=== PATIENT | male | born 1935 | race Caucasian/White ===

== ENCOUNTER 2016-09-02 06:14 | Inpatient (IN) | payer MEDICARE, BC ==
[~2016-09-02] VITALS: Ht 177.8 cm; Wt 83.8 kg
--- NOTE | ~2016-09-02 | CON ---
PATIENT'S NAME: ABIGAIL STEEN [facility] AGE: 80 Y [address] ROOM: [address] [place], [place] [address] [place] [facility] [place]: 09/02/2016 Consultation DISCHARGE DATE: FAMILY PHYSICIAN: ELLE BULL MD ATTENDING PHYSICIAN: Poncho Bales REFERRING PHYSICIAN: ALLEGRA GARZA MD CHIEF COMPLAINT: The patient needs blood sugar and cardiac monitoring after surgery. HISTORY OF PRESENT ILLNESS: Mr. 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 This left-handed patient did well in surgery and had been cleared from cardiac standpoint. When I talked to him on the floor, he is not complaining of any pain in his arm. He is denying shortness of breath or chest pain. No headaches. No fevers, chills, or cough. He has no other complaints. REVIEW OF SYSTEMS: Negative except for those noted in the HPI. ALLERGIES: 1. CONTRAST ALLERGY. 2. PROCAINAMIDE. PAST MEDICAL HISTORY: 1. Paroxysmal atrial fibrillation, rate controlled as well as anticoagulated. 2. Calcaneal spur. 3. Diabetes mellitus type 2, with good control. Last hemoglobin A1c was within normal limits. 4. Congestive heart failure. 5. Emphysema. 6. History of bladder cancer. 7. History of prostate cancer. 8. Hypercholesterolemia. 9. Labyrinthitis. 10. Plantar fasciitis. 11. Obesity. 12. Obstructive sleep apnea. PAST SURGICAL HISTORY: 1. Tumor removal of left squamous cell metastasis. 2. CABG. PATIENT'S NAME: ABIGAIL STEEN [facility] AGE: 80 Y [address] ROOM: [address] [place], [place] [address] [place] [facility] [place]: 09/02/2016 Consultation DISCHARGE DATE: FAMILY PHYSICIAN: ELLE BULL MD ATTENDING PHYSICIAN: Poncho Bales 3. Cystoscopy. 4. Hernia repair. 5. Knee surgery. 6. Prostatectomy. 7. Tonsillectomy. 8. [place] teeth repair. MEDICATION LIST: Please see nursing notes. FAMILY HISTORY: 1. Brain neoplasm in sister. 2. Lung disease in sister. SOCIAL HISTORY: The patient previously drank alcohol socially, but is no longer. He does drink coffee occasionally. He served in the [employer]. 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 He uses a seatbelt every day. He does have a long-term relationship. PHYSICAL EXAMINATION: GENERAL: Pleasant, interactive elderly male in no acute distress. HEAD: Normocephalic, atraumatic. Eyes, conjunctivae clear. Sclerae white. ENT, mucous membranes moist. HEART: Regular rate and rhythm without murmurs, rubs, clicks, or gallops. LUNGS: Clear to auscultation in all izquierdo bilaterally. ABDOMEN: Soft, nontender, nondistended. Bowel sounds are positive. EXTREMITIES: Warm and well perfused. No clubbing, cyanosis, or edema. MUSCULOSKELETAL: The patient's left upper extremity is wrapped with a Hugo- Arredondo drain as well as a sling in place. IMPRESSION/PLAN: 1. Postoperative day #1 status post tumor resection of the left elbow area. The patient is doing well, currently postop. He has Percocet ordered. May also need IV pain medication as well. We will continue to manage. 2. Paroxysmal atrial fibrillation. The patient currently is in sinus rhythm. We will just continue with his current medication regimen. 3. Chronic anticoagulation. Xarelto will resume as long as it is okay with patient's primary surgical team. 4. Hypothyroidism. We will draw TSH in the morning. 5. Diabetes mellitus type 2. Sliding scale insulin while in the hospital. We will continue with just sliding scale and hold his the glipizide while in hospital. 6. Congestive heart failure. The patient appears to be normal or euvolemic at this time. We will just continue to watch. PATIENT'S NAME: ABIGAIL STEEN [facility] AGE: 80 Y [address] ROOM: [address] [address] [place] [facility] [place]: 09/02/2016 Consultation DISCHARGE DATE: FAMILY PHYSICIAN: ELLE BULL MD ATTENDING PHYSICIAN: Poncho Bales 7. Chronic obstructive pulmonary disease. May need oxygen at nighttime. 8. Obstructive sleep apnea with CPAP continued in the hospital. 9. Hyperlipidemia. Continue with the patient's statin medication. 10. Ischemic cardiomyopathy. Patient's last echo was 2014 and appeared to be normal. He had normal Lexiscan test. We wanted to see how he does overall. 11. History of history of gastrointestinal bleed. We will monitor. 12. Fluids: None. 13. Electrolytes: Stable. Continue to monitor as needed. 14. Nutrition: Cardiac diet. 15. Disposition: Ultimately per surgical team. Thank you to the primary surgical team for the consultation of this very pleasant patient. I will continue to follow along while in hospital. MD ARLENE GOODEN/modl /[id number] d: 09/03/16 0127 t: 09/07/16 1516, CONSULTATION REPORT
--- NOTE | ~2016-09-02 | CON ---
PATIENT'S NAME: GUANAKO STEEN [facility] AGE: 80 Y [address] ROOM: [address] [address] LOC[place]: [facility] [place] ADMIT DATE: 09/03/2016 Consultation DISCHARGE DATE: FAMILY PHYSICIAN: ELLE BULL MD ATTENDING PHYSICIAN: Poncho Bales REFERRING PHYSICIAN: ALLEGRA GARZA MD Consult to Poncho Bales DO. 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 The history of the present illness is obtained from Mr. Steen who is a voluble and circumlocutory historian; from review of the [facility] record; and review of the [facility] record. Mr. Steen underwent an excision of a left recurrent malignant squamous cell carcinoma as well as a left ulnar neuroplasty at the elbow and left median neuroplasty of the forearm and left brachial artery exposure yesterday. The patient is seen in the hospital. The pathologists have not rendered a final diagnosis on the histology. The patient tolerated the procedure well and is feeling well today. Prior to admission, the patient lived in [place] with his . He developed dyspnea on exertion if he walked [address] and do easy lawn work or housework. The patient was experiencing some discomfort in the medial upper left arm just above the elbow. The patient underwent MRI of the left humerus on 07/30/2016, which revealed a 2.3 cm rim-enhancing mass in the distal medial aspect of the left upper arm within the anterior margin of the long head triceps muscle adjacent to the medial margin brachialis muscle, just anterior to the basilic vein and the ulnar nerve. There was surrounding intramuscular enhancement as well as overlying subcutaneous edema and skin thickening. The patient saw his oncologist, Dr. Ileana [place], who booked a PET/CT scan, which was performed on 08/06/2016. This revealed a mass in the distal medial left upper arm in the area of previous surgery with an SUV of 4.4. The mass had not been present on the most recent PET/CT scan performed on 02/17/2016. There were also tiny gallstones. Dr. [place] referred the patient to Dr. Bales, who performed the aforementioned procedure. The patient has a history of cutaneous squamous cell carcinoma. In February 2014, the patient saw Dr. Bulmaro Shoemaker for a squamous cell carcinoma present on the left 3rd digit. The lesion was excised. The path report is currently PATIENT'S NAME: GUANAKO STEEN [facility] AGE: 80 Y [address] ROOM: [address] [place], [place] [address] LOCATION: [facility] [place] ADMIT DATE: 09/03/2016 Consultation DISCHARGE DATE: FAMILY PHYSICIAN: ELLE BULL MD ATTENDING PHYSICIAN: Poncho Bales. The initial pathology report, obtained after the 1st surgical biopsy revealed squamous cell carcinoma with tumor involving the lateral linked resection margins, but the pathology report after the re-excision is not available. In March 2015, the patient detected a mass in the upper left arm. Surveillance was implemented and 2 months later the mass had grown and the patient was experiencing pain and developed a left 4th trigger finger. An MRI on 05/19/2015 revealed the mass had enlarged from 4 to 7 cm in 2 months. On 05/17/2015, Dr. Ileana Berrios, an orthopedic oncologist in [place], [place] performed a needle biopsy of the mass. This revealed the presence of squamous cell carcinoma. A PET/CT scan was performed and revealed uptake in the left axilla as well as the left arm mass. On 06/13/2015, a fine-needle aspirate revealed squamous cell carcinoma in the left axillary mass. On 06/14/2015, cetuximab was initiated. On 06/25/2015, infusional 5-FU, carboplatin, and cetuximab were administered together and a 2nd cycle was started on 08/29/2015. From 08/22/2015 through 11/07/2015 weekly cetuximab was administered. From 09/23/2015 through 11/15/2015, 5940 cGy was administered in(presumably thirty three 180 cGy fractions) to the "tumor involved area." On 02/18/2016, the PET scan revealed the patient was in a complete remission. ACTIVE MEDICAL PROBLEMS (CHRONIC AND DIAGNOSED): 1. ? dementia listed as a diagnosis. 2. Hypothyroidism. 3. Diabetes mellitus. 4. Hypercholesterolemia. 5. 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 6. Chronic paroxysmal atrial fibrillation. 7. Essential arterial hypertension. 8. Hyperlipidemia. 9. Ischemic cardiomyopathy. 10. Chronic obstructive lung disease. 11. Obstructive sleep apnea with CPAP. 12. Diaphragmatic hernia with associated gastroesophageal reflux disease. 13. Hyperplastic polyps of the colon. 14. Cholelithiasis noted on CAT scan. 15. Tobacco use. The patient has abstained since 1996, but smoked 1 pack PATIENT'S NAME: GUANAKO STEEN [facility] AGE: 80 Y [address] ROOM: [place] [address] LOCATION: [facility] [place] ADMIT DATE: 09/03/2016 Consultation DISCHARGE DATE: FAMILY PHYSICIAN: ELLE BULL MD ATTENDING PHYSICIAN: Poncho Bales per day for 47 years. ACUTE MEDICAL ILLNESS, (RESOLVED), PAST SURGERIES, AND INJURIES: 1. In 1994, left carpal tunnel repair. 2. In 1998, coronary artery bypass graft two-vessel disease. 3. In 2008-triple herniorrhaphy. 4. In 2009, prostatectomy for pC2c adenocarcinoma. 5. In 2011-transurethral resection of bladder tumor with subsequent BCG treatments for papillary urothelial bladder cancer in situ. 6. In 2013, pneumonia complicated by atrial fibrillation with rapid ventricular response. 7. Cataract excisions. MEDICATIONS: Upon admission: 1. Acetaminophen/diphenhydramine 2 tablets p.o. q.p.m. 2. Albuterol sulfate inhaler. 3. Apixaban. 4. Atorvastatin. 5. Fluocinonide. 6. Furosemide. 7. Glipizide. 8. Levothyroxine sodium. 9. Lisinopril. 10. Omeprazole. 11. Sotalol. 12. Tiotropium bromide inhaler. ADVERSE REACTIONS TO MEDICATIONS, ALLERGIES, AND TRANSFUSIONS: 1. The patient has no known allergies. 2. The patient did receive 6 units of packed red blood cells during an admission in August of 2015 when he was hospitalized for a chemotherapy related anemia. 3. Tobacco one pack per day for 42 years. The patient has abstained from tobacco since 1996. 4. Alcohol: The patient does not drink alcohol any more. SOCIAL HISTORY: The patient is and lives in [place]. He served in the [employer]. 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 REVIEW OF SYMPTOMS: Negative other than those noted. The patient does acknowledge that he had a tonsillectomy. PATIENT'S NAME: GUANAKO STEEN [facility] AGE: 80 Y [address] ROOM: [place] [address] LOC[place]: [facility] [place] ADMIT DATE: 09/03/2016 Consultation DISCHARGE DATE: FAMILY PHYSICIAN: ELLE BULL MD ATTENDING PHYSICIAN: Poncho Bales PHYSICAL EXAMINATION: VITAL SIGNS: Pulse 52 and regular, blood pressure 125/60, respiratory rate 24, temperature 98 degrees, SpO2 91% on room air. Height 70 inches, weight 83.8 kg/m2 (185 pounds). BMI 26.5 kg/m2. GENERAL: Well-developed, slightly overweight, 80-year-old, male, in no acute distress. HEENT: Unremarkable. LYMPH NODES: None palpable. NECK: Without JVD or carotid bruits. SKIN: Unremarkable. CHEST: Clear. CARDIOVASCULAR: Irregularly irregular rhythm. No murmurs, bruits or adventitious sounds. GENITALIA AND RECTAL: Not examined. EXTREMITIES: Without peripheral edema. Pulses 2+ throughout. IMPRESSION: 1. Recurrent cutaneous squamous cell carcinoma in the medial upper left arm involving the brachial artery and close to the ulnar and median nerves. 2. The patient tolerated the surgery well. 3. It is clear that surgery was warranted. If the area was not previously irradiated (and possibly even if it has been irradiated before) radiation therapy should probably be contemplated. 4. Empiric chemotherapy is a consideration based on its proven activity in measurable metastatic disease. Given the patient's past treatment, his past adverse reactions and the absence of clinical trial data in this unusual situation, there is little data to guide the patient. RECOMMEND: DIAGNOSTIC: 1. The patient will return to his oncologist Dr. [place] in 3-4 weeks to evaluate his situation. TREATMENT: 1. Discussion of the pros and cons of postoperative systemic chemotherapy and the pros and cons of referral of Radiation Oncology will presumably be conducted at that time. PATIENT EDUCATION: Discussed the above considerations. EDWIN DUFFY MD PATIENT'S NAME: GUANAKO STEEN [facility] AGE: 80 Y [address] ROOM: [place] [address] LOC[place]: [facility] [place] ADMIT DATE: 09/03/2016 Consultation DISCHARGE DATE: FAMILY PHYSICIAN: ELLE BULL MD ATTENDING PHYSICIAN: Poncho Bales GKB/modl /[id number] CC: Alex Munoz MD, PhD MD Bulmaro Desir MD d: 09/04/16 1716 t: 09/07/16 1836, CONSULTATION REPORT
--- NOTE | ~2016-09-02 | DS ---
PATIENT'S NAME: GUANAKO STEEN [facility] AGE: 80 Y [address] ROOM: [place] [address] [place] [facility] [place]MIT DATE: 09/03/2016 Discharge Summary DISCHARGE DATE: 09/06/2016 FAMILY PHYSICIAN: Michi Mak MD ATTENDING PHYSICIAN: Poncho Bales CORRECTED WORK TYPE 09/16/16 AO PRINCIPAL DIAGNOSIS: Recurrent squamous cell carcinoma of the left upper arm. OTHER DIAGNOSES: None. PROCEDURES PERFORMED: Left arm malignant tumor excision, ulnar neuroplasty at the elbow, and median neuroplasty of the forearm and arm. SURGEON: Poncho Bales DO. ADMISSION INFORMATION: Guanako Steen is an 80-year-old man with a history of recurrent malignant metastatic squamous cell carcinoma with a mass in his medial aspect of his upper arm on the left side. He was previously treated with this surgically and underwent subsequent radiation and chemotherapy. He initially did well, and then had a recurrence in the area of his first met. He was counseled as to treatment options. Risks versus benefits, and necessary afterward care and gave informed consent to proceed with a mass excision, possible vascular repairs, ulnar neuroplasty, and any indicated procedures. HOSPITAL COURSE: He was taken to the operating room on 09/02/2016 and underwent the above mentioned surgeries. He did well postoperatively. His wound was closed over a drain. The drain was seemed to function well after day one intraoperatively. His postoperative care was characterized by pain medications, prophylactic antibiotics, and wound care. He had an unremarkable hospital stay and was discharged on 09/06/2016. DISCHARGE INSTRUCTIONS: Include followup instructions, wound care, outpatient nursing, and activity restrictions. For the fine details of his admission, please see the permanent record. PONCHO BALES DO NTM/modl /[id number] PATIENT'S NAME: GUANAKO STEEN [facility] AGE: 80 Y [address] ROOM: [place] [address] LOC[place]: [facility] [place] ADMIT DATE: 09/03/2016 Discharge Summary DISCHARGE DATE: 09/06/2016 FAMILY PHYSICIAN: Michi Mak MD ATTENDING PHYSICIAN: Poncho Bales CORRECTED WORK TYPE 09/16/16 AO d: 09/11/16 0039 t: 09/21/16 1754, DISCHARGE SUMMARY
--- NOTE | ~2016-09-02 | OR ---
PATIENT'S NAME: GUANAKO STEEN [facility] AGE: 80 Y [address] ROOM: [place] [address] [place] [facility] [place] ADMIT DATE: 09/03/2016 OR/Procedure Report DISCHARGE DATE: 09/06/2016 FAMILY PHYSICIAN: Michi Mak MD ATTENDING PHYSICIAN: Poncho Bales SURGEON: Poncho Bales DO ACOUSTICAL MATERIAL WORKER: Staff. 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 PROCEDURES: 1. Left malignant tumor excision from the medial arm. 2. Left ulnar neuroplasty in situ at the elbow. 3. Left median neuroplasty at the elbow and forearm. 4. Left brachial artery exposure by Dr. Hernandez. ANESTHESIA: Regional plus general. ESTIMATED BLOOD LOSS: Less than 100 mL. TOURNIQUET TIME: 0. COMPLICATION: None. DISPOSITION: Stable to recovery room. JUSTIFICATION FOR PROCEDURE: Guanako Steen is an 80-year-old man with a history of metastatic squamous cell carcinoma to the medial aspect of his left arm. In the remote past, he underwent an excision of the mass and extensive chemotherapy and radiation, and initially went into remission with no evidence of malignancy through his body. He began having recurrent pain in the medial arm and followup radiologic studies showed evidence for a recurrent malignant squamous cell tumor in the area of his previous tumor resection. He was counseled as to treatment options, risks versus benefits, and necessary afterward care. During his previous surgery, it was noted that the tumor approached the brachial artery at the medial arm and a decision was made to involve a vascular surgeon in his care. Dr. Hernandez was consulted and agreed to do a vascular exposure and possible shunting versus repair of the artery as needed. The patient was counseled as to treatment options, risks versus benefits, and necessary afterward care, and gave informed consent to proceed PATIENT'S NAME: GUANAKO STEEN [facility] AGE: 80 Y [address] ROOM: [place] [address] [place] [facility] [place] ADMIT DATE: 09/03/2016 OR/Procedure Report DISCHARGE DATE: 09/06/2016 FAMILY PHYSICIAN: Michi Mak MD ATTENDING PHYSICIAN: Poncho Bales with a mass excision from his left upper arm, ulnar neuroplasty at the elbow, possible vascular repair versus reconstruction, and any indicated procedures. PROCEDURE IN DETAIL: The patient was properly identified both verbally and by name tag. He was taken to the operating suite and placed on the operating table in the supine position. The anesthesiologist administered a regional anesthetic and general anesthesia. Once adequate anesthesia was obtained, the left upper extremity was prepped and draped in the usual sterile fashion. A sterile tourniquet was available, but was never used throughout the case. Dr. Hernandez started the procedure with a vascular exposure of the brachial artery proximally, just below the axilla and distally at the level of the flexion crease of the elbow and proximal forearm. The brachial artery had loops applied around it on both locations, but these were not used to compress the artery throughout the procedure. They were available in case the dissection needed to sacrifice the area of the brachial artery. The procedure was then turned over to my care. Dr. Hernandez left and his mechanic's assistant remained behind to assist in the rest of the procedure. The proximal and distal incisions were connected cutting only the skin with a #15 blade knife, followed by blunt dissection through the soft tissue superficially to deep at both ends. The brachial artery was used as a plane of dissection from distal to proximal going from normal tissue into the zone of previous scarring. The median nerve was identified and protected throughout the procedure. The pathologic tissue came very close to the brachial artery, but then did not actually involve the vascular sheath, and was able to be dissected away without injuring the artery. Small venous structures were ligated and cauterized. This was done with 3-0 silk suture ties. The mass was invasive to the local soft tissues from the triceps muscle posteriorly up to the brachialis and biceps muscle anteriorly. All involved pathologic tissues were sharply resected taking care to leave healthy- appearing tissues behind. The ulnar nerve was identified proximal and distal to the zone of pathology and was carefully freed up through the zone of pathology. There was a fibrous sheath around the ulnar nerve, which seemed to be protecting it from the pathologic tumor tissue and therefore the ulnar nerve was able to be preserved. The medial brachial cutaneous nerve, however, was intimately involved in the tumor and was not salvageable. It was transected proximally and was excised along with the tumor. The tumor was removed and dissection was carried all the way down to the level of the periosteum on the medial distal humerus and superficially all the way to the level of the subcutaneous tissues. The wound was copiously irrigated with saline. Hemostasis was obtained throughout the procedure with direct pressure and minimal bipolar electrocautery. No tourniquet was used and no exsanguination was performed throughout the procedure. The wound was copiously irrigated with saline and then with sterile water. The ulnar nerve was left as an in situ neuroplasty. The median nerve also was left as an in PATIENT'S NAME: GUANAKO STEEN [facility] AGE: 80 Y [address] ROOM: [place] [address] LOC[place] [facility] [place] ADMIT DATE: 09/03/2016 OR/Procedure Report DISCHARGE DATE: 09/06/2016 FAMILY PHYSICIAN: Michi Mak MD ATTENDING PHYSICIAN: Poncho Bales situ neuroplasty and the loops were removed from the brachial artery. The artery was never actually compressed throughout the procedure and the patient maintained good pulses distally throughout the procedure. The soft tissues were closed with 4-0 undyed Vicryl to the subcu followed by surgical steel servando to the skin. A sterile bulky bundle dressing was applied. The patient was aroused from general anesthesia, extubated by the anesthesiologist, and taken to the recovery room in good condition. Immediate postoperative examination in the recovery room showed good capillary refill distally in all 5 digits. Light touch sensation and motor function distally were equivocal due to persistence of the neurologic blockade. DO MING [facility]/modl /[id number] d: 09/11/16 0107 t: 09/21/16 1751, OPERATIVE SUMMARY
--- NOTE | ~2016-09-02 | CON ---
PATIENT'S NAME: ABIGAIL STEEN [facility] AGE: 80 Y [address] ROOM: [place] [address] [place] [facility] [place]: 09/03/2016 Consultation DISCHARGE DATE: FAMILY PHYSICIAN: ELLE BULL MD ATTENDING PHYSICIAN: Poncho Bales DATE OF CONSULTATION: 09/04/2016 REFERRING PHYSICIAN: ALLEGRA GARZA MD REASON FOR CARDIOLOGY CONSULT: Bradycardia. HISTORY OF PRESENT ILLNESS: This is an 80-year-old male who normally follows cardiology care with Dr. Don Alfred. He is currently admitted for a tumor resection from his left elbow. This consult is requested due to the patient having bradycardia with heart rates in the 40 to 50 beats per minute range. He currently denies chest pain, shortness of breath, dyspnea on exertion, or palpitations. He also denies headache, presyncope, or syncope. Overall, he states "I feel great," and plan is to discharge him to home today. He has a previous history of paroxysmal atrial fibrillation which is controlled with p.o. sotalol. He also has a known coronary artery disease history with coronary stenting and coronary artery bypass grafting. He was previously seen by Dr. Don Alfred in a preoperative evaluation from a cardiac standpoint on 08/14/2016 and had previously undergone a stress test which showed no noted ischemia. PAST MEDICAL HISTORY: 1. Paroxysmal atrial fibrillation. 2. Long-term anticoagulation. 3. Hypothyroidism. 4. Diabetes mellitus, type 2. 5. Coronary artery disease with coronary artery bypass grafting in 1998 and subsequent coronary artery stenting in 2002. 6. Ischemic cardiomyopathy. 7. Combined systolic and diastolic congestive heart failure. 8. Hyperlipidemia. 9. Obstructive sleep apnea, with CPAP use. 10. COPD. 11. Adenocarcinoma of the prostate. 12. 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 13. Most recent GI bleed noted to be August 2015. PAST SURGICAL HISTORY: 1. Tonsillectomy. PATIENT'S NAME: ABIGAIL STEEN [facility] AGE: 80 Y [address] ROOM: [place] [address] [place] [facility] [place]: 09/03/2016 Consultation DISCHARGE DATE: FAMILY PHYSICIAN: ELLE BULL MD ATTENDING PHYSICIAN: Poncho Bales 2. Appendectomy. 3. Right knee arthroplasty. 4. Carpal tunnel release. 5. Coronary artery bypass grafting x2 vessels in 1998. 6. Heart catheterization with stent placement. 7. Prostatectomy. 8. EGD. FAMILY HISTORY: The patient's father due to a suicide. His mother at the age of 81 due to heart failure and Alzheimer's. SOCIAL HISTORY: The patient is a former cigarette smoker. He smoked for a total of 30 years and quit smoking in 1997. During the time he was smoking, he would smoke 1 pack per day. He does admit to alcohol use on 4 days a week, and on those days, he will have up to 1 drink at a time. He denies illicit drug use. CURRENT MEDICATIONS: 1. Proventil 2 puffs inhaled twice daily. 2. Spiriva 2 puffs inhaled in the evening. 3. Benadryl 50 mg p.o. daily in the evening. 4. Eliquis 5 mg p.o. daily. 5. Glucotrol 2.5 mg p.o. twice daily with meals. 6. Lasix 40 mg p.o. every 48 hours. 7. Lasix 60 mg p.o. every 48 hours. 8. Synthroid 50 mcg p.o. daily. 9. Lipitor 40 mg p.o. daily in the evening. 10. Prinivil 2.5 mg p.o. daily. 11. Protonix 40 mg p.o. daily in the evening. 12. Tylenol Extra Strength 1000 mg p.o. daily in the evening. 13. NovoLog subcu on a mild sliding scale per a.c. and h.s. Accu-Cheks. 14. Sotalol 120 mg p.o. twice daily. MEDICATION ALLERGIES: 1. Iodine contrast medium causing hives. 2. Procainamide causing nausea. REVIEW OF SYSTEMS: Pertinent positive review of systems as in HPI. Also of note is his cancer diagnosis with recent metastases and recent tumor resection. All other review of systems evaluated and negative. DIAGNOSTICS: His EKG showed atrial fibrillation with slow ventricular response. His recent PATIENT'S NAME: ABIGAIL STEEN [facility] AGE: 80 Y [address] ROOM: [place] [address] [place] [facility] [place]: 09/03/2016 Consultation DISCHARGE DATE: FAMILY PHYSICIAN: ELLE BULL MD ATTENDING PHYSICIAN: Poncho Bales stress test in August 2015 showed an ejection fraction of 49% with no noted ischemia. [facility] evaluation shows sodium of 136, potassium 4.8, BUN 25, creatinine 1.7, and glucose of 177. PHYSICAL EXAMINATION: VITAL SIGNS: Temperature 97.6, pulse 53, respirations 16, blood pressure 136/62, and O2 saturation 94% on room air. The patient weighs 83.8 kg. SKIN: [place], warm, and dry. EYES: Sclerae clear. No xanthelasmas. ENT: Oral mucosa is pink and moist. No jugular venous distention noted. Does have the presence of carotid bruits. CHEST: Respirations are even and unlabored. Lungs are clear to auscultation with diminished breath sounds noted to bilateral bases. HEART: Irregular rate and rhythm. Normal S1. Does have a decreased S2. There is also presence of a 2/6 systolic murmur. ABDOMEN: Soft and nontender. MUSCULOSKELETAL: Gait is normal. EXTREMITIES: Peripheral pulses palpable. No clubbing or cyanosis noted. Does have trace lower extremity edema present. PSYCHIATRIC: Alert and oriented. Mood and affect are appropriate. IMPRESSION AND PLAN: Per Dr. Ken. 1. Paroxysmal atrial fibrillation, currently on sotalol. 2. Bradycardia, currently asymptomatic with no signs or symptoms of acute coronary syndrome. 3. Hypertension. 4. Combined systolic and diastolic congestive heart failure. Currently, appears euvolemic and in no acute congestive heart failure exacerbation state. 5. Coronary artery disease, status post CABG and percutaneous intervention. 6. Squamous cell carcinoma with metastases and recurrence. He is currently status post resection from his left elbow. 7. Dyslipidemia. 8. Diabetes mellitus. 9. Chronic kidney disease. The patient is stable to be discharged to home with discontinuation of sotalol. We will have him follow up Wednesday morning, specifically, September 07, with Dr. Alfred. We will check a TSH at this time. Thank you for this consult. Thank you for allowing [facility] to interact in the care of your patient. PATIENT'S NAME: ABIGAIL STEEN [facility] AGE: 80 Y [address] ROOM: [id number] [place], [place] [address] [place] [facility] [place]: 09/03/2016 Consultation DISCHARGE DATE: FAMILY PHYSICIAN: ELLE BULL MD ATTENDING PHYSICIAN: Poncho Bales MANAS ESPITIA MD DEH/modl /[id number] d: 09/04/16 1811 t: 09/10/16 1431, CONSULTATION REPORT
[~2016-09-02 06:14] MED LIST: ACETAMINOPHEN1 EACH PO; ASPIR 8181 MG PO; ASPIR-TRIN325 MG PO; BETAPACE (GENER80 MG PO; BREO ELLIPTA 11 EACH INH; CARAFATE SU100 MG/ML PO; CEFDINIR300 MG PO; CEFTIN500 MG PO; CIPRO250 MG PO; COLACE100 MG PO; COMPAZINE 10MG10 MG PO; COZAAR100 MG PO; CPAP INH; DOXYCYCLINE100 MG PO; ELIQUIS5 MG PO; GLUCOTROL5 MG PO; K-TAB 10MEQ10 MEQ PO; LASIX20 MG PO; LASIX40 MG PO; LEVOTHROID (SY50 MCG PO; LIDEX TOP; LIPITOR40 MG PO; MAG119MX PO; NORCO 5-325 MG1 TAB PO; OMEPRAZOLE40 MG PO; OXYGEN M-15 INH; PERCOCET 5-3251 EACH PO; PRILOSEC20 MG PO; PROAIR RESPICL90 MCG INH; PROTONIX40 MG PO; PROVENTIL OR V6.7 GM INH; SLOW-MAG (64 MG1 TAB PO; SPIRIVA HANDIHA1 KIT INH; TYLENOL EXTRA500 MG PO; TYLENOL PM EX-1 EACH PO; XARELTO15 MG PO; ZESTRIL2.5 MG PO
--- NOTE | 2016-09-02 18:28 | NUR ---
Significant Event: LUE IN SLING WITH DRESSING CLEAN, DRY AND INTACT. PATIENT STILL UNABLE TO FEEL HAND OR MOVE FINGERS. HEMOVAC TO LUE DOES NOT STAY COMPRESSED AND MD AWARE OF ISSUE IN PACU. NO OUTPUT. NO C/O PAIN. SBP 150-170'S. HR 50-60'S. ANCEF GIVEN AT 1600 THEN DOSED AGAIN AT 0000. DR DUFFY CONSULTED AND SEEN AT [facility] DR BULL WHO ADDRESSED SSI. Follow up: MONITOR NEURO CHECKS WITH ASSESSMENTS. CONT PER PLAN OF CARE.
--- NOTE | 2016-09-02 23:30 | NUR ---
Significant Event: Patient alert and oriented x 3. Denies pain at this time. Transferred to [facility] after call to Dr Bales and order recieved. Patient and daughter both notified of transferred. Priti RN to call Daughter Agustina and notify of new room number. Patient Did not appear to be in distress. Belongings gathered and taken with patient. Hemavac continues to have Air leak. Per Millicent RN: Dr Bales aware. Sensation slowly returning to arm. Patient able to move and bend arm but not fingers. can feel touch to FA but not fingertips. No fine motor control noted yet.
--- NOTE | 2016-09-03 03:55 | NUR ---
Significant Event: Patient transferred from PCU at 2320. Alert and oreinted X4. Up with one person assist. Sling to L) arm, still numb from nerve block. Starting to be able to wiggle fingers. Covered in dominik wrap and xeroform, clean and intact. Patient denies pain. IV to R) wrist is saline locked. Good blood return. Received LALITHA this shift. No nausea. Vitals stable and on CPAP with 2 liters at night only. No oxygen use during day. Bed alarm on. History of dementia, but no symptoms tonight. Home today. Had resection for squamous cell carcinoma from l) arm. Cooperative with cares. Follow up: Moniotor neuro checks
[2016-09-03 09:53] LABS: BASOPHIL % 0.3 %; EOSINOPHIL % 0.1 %; HEMATOCRIT 33.5 % (33.0-50.0); HEMOGLOBIN 11.6 g/dL (11.0-16.0); IMMATURE GRANULOCYTE % 0.4 %; LYMPHOCYTE # 1.4 K/uL (0.8-4.0); LYMPHOCYTE % 14.7 %; MCH 32.4 pg (27.0-34.0); MCHC 34.6 gm/dL (32.0-36.5); MCV 93.6 fl (83.0-98.0); MONOCYTE # 0.8 K/uL (0.0-1.0); MONOCYTE % 8.2 %; NEUTROPHIL # (ANC) 7.2 K/uL (1.4-9.0); NEUTROPHIL % 76.3 %; NRBC % 0 /100WBC (0-0.00); PLATELET COUNT 162 K/uL (150-450); RBC 3.58 M/uL (3.50-5.50); RDW-CV 11.9 % (11.9-14.6); WBC 9.5 K/uL (4.0-11.0)
[2016-09-03 10:14] LABS: ANION GAP 10.8 (10.0-19.0); CALCIUM 8.3 mg/dL (8.5-10.5); CREATININE 1.7 mg/dL (0.6-1.3); POTASSIUM 4.8 mMol/L (3.7-5.1)
--- NOTE | 2016-09-03 16:03 | NUR ---
Significant Event: Pt c/o intermittent left arm/hand pain, good relief with percocet, last given at 1315. Up with standby assist. Good CSM's to left hand, has full sensation in it. Still have hemavac drain, has an air leak (MD aware), minimal drainage noted. S/o admitted on NTU, daughter took him over this afternoon to see her. Follow up:
--- NOTE | 2016-09-04 00:23 | NUR ---
Significant Event: Patient care from 3862-1981. Patient alert and oriented x4. Forgetful and history of dementia. Bed alarm on at all times, does forget to call. Patient refusing walker when offered, but does well with stand by assist. CPAP on at night with 2 liters oxygen, room air during day. Vitals stable. Sling and hemavac to L) arm. Percocet given at 2030 with relief noted. Neuro checks are normal. R) wrist saline lock. ACHS accuchecks. His is on NTU, and patient likes to visit her. Patient informed me adonay that stated he will still have to do chemo and radioation. Follow up: Monitor hemavac
--- NOTE | 2016-09-04 04:53 | NUR ---
Significant Event: ASSUMED CARES AT MIDNOC. A/O X3 , BUT FORGETS. HAD 2 PERCOCETS TABS LAST AT 192. CPAP ON AT HS WITH 2L OXYGEN. SLING TO LEFT ARM. HEMOVAC NOT STAYING COMPRESSED, WITH LITTLE TO NO DRAINAGE. DRSGS LEFT ARM DRY-INTACT. UP WITH ONE ASSIST TO BR. BED EXIT ALARM ON. Follow up:
--- NOTE | 2016-09-04 10:20 | NUR ---
1020 Introduced self/role to patient and his daughters Agustina and Lenore whom live in [facility]. There plan is for patient to return to his home. His significant other is also a patient and they stated will be looking at SNF placement. The goal is to eventually get them together at a [facility]. They did question what the difference between "skilled", TCU, Swing Bed and Respite was. Covered those and talked about C. Interested in C, significant other has [facility] and would like to go with them. 1135 called [facility] #[phone], spoke to Marta. Faxed referral at 1200 #[phone]. Did explain to Marta that I might not get the Face to face signed before patient left, she didn't think that was a problem, they can get later. [address] Mak #[phone], fine with [facility]. Added [facility]HC to orders. Updated Jacklyn Charge Nurse and left a sticky not on the chart to fax final orders and meds to [facility] once Dr. Lopez rounded.
--- NOTE | 2016-09-04 15:28 | NUR ---
Significant Event: Pt c/o intermittent left arm pain, good relief with Percocet. Hemovac still in place, still no suction so very minimal drainage noted. Up with 1 assist, slightly unsteady. HR this am 45-57, apical was 44. MD notified, held bp meds this am. Cardiology consulted. EKG done this am. Stopped Betapace per order. Dr. Campos called around 1500 and want another repeat EKG for concern of AFIB. Pt asymptomatic. BP was 190/70 at 1400, did go ahead and give am dose of lisinpril and will recheck. HR continues in mid to lower 50's this shift. Went over to visit s/o at NTU. Possible dc to home this evening but can not dc with hearing back from Dr. Campos. Good CSM to left arm/hand, dressings d/i, continues with sling. Follow up:
--- NOTE | 2016-09-05 04:04 | NUR ---
Significant Event: Pt is alert and oriented. VSS on RA. CPAP at night. ACHS accuchecks. IV to the R)hand SL. Hemavac to L)arm still has no suction, day RN reported the MD was aware. Dressing is clean/dry/intact. Neuro checks within normal limits to L)arm. Ambulates per 1 assist/gaitbelt. Follow Up: Possible discharge today.
--- NOTE | 2016-09-05 10:25 | NUR ---
PT SCREENED D/T MST. WT LOSS NOT SIGNIFICANT. EATING 75-100% OF MEALS. PLAN TO DC THIS WEEKEND. WILL ASSIST NEEDED.
--- NOTE | 2016-09-05 17:33 | NUR ---
Significant Event:Is A/O.No c/o pain.Lt.arm drsg,& dominik wrap D/I & is in a sling.Sl unsteady on feet.Lt.side hemovac will not stay compressed & knows this.VS ok.Goes to neuro floor to visit at times.SL in Rt.wrist.Pleasant. Follow up:
--- NOTE | 2016-09-06 06:04 | NUR ---
Significant Event: ALERT AND ORIENTATED HAD A L) MASS TAKEN OUT LAST WEEK. L) ARM IS IN SLING. HEMO VAC IS NOT STAYING COMPRESSED MD NOTIFIED. 1-2 ASSIST. ACHS NO INSULIN GIVEN THIS SHIFT. FINGERS TINGLY VS WNL. CARDIAC DIET. HOB ELEVATED 30 DEGREES. CPAP AT HS. Follow up:
--- NOTE | 2016-09-06 13:06 | NUR ---
A - PT SCREENED D/T LOS. HEMOVAC. 1+ EDEMA. HT: 70" WT: 185# BMI: 26.5 LABS: ACCUCHECK WNL->200, GLU 177, BUN/CR 25/1.7 MEDS: LASIX, PROTONIX, SSI, GLIPIZIDE, SYNTHROID DIET: CARDIAC. INTAKE: 75-100% NEEDS: 7550-8391 KCAL (20-25 KCAL/KG), 67-84 G PRO (0.8-1 G/KG), 2520 ML FLUID (30 ML/KG) D - NO NUTRITION RELATED DIAGNOSIS IDENTIFIED AT THIS TIME. I - GOAL FOR INTAKE TO REMAIN 75-100% FOR DURATION OF STAY. M/E - WILL ASSIST NEEDED.
[2016-09-06] MEDS ORDERED: PERCOCET 5-3251 EACH PO (14:16)
--- NOTE | 2016-09-06 15:25 | NUR ---
AFTER GIVING PT.AND DAUGHTER DISCHARGE INSTRUCTIONS ON ARM WOUND,MEDS,SCRIPTS IN WHICH THEY VERBALIZED UNDERSTANDMENT.PT WAS DISMISSED PER W/C ACCOMP.BY FAMILY TO NEUROTRAUMA TO VISIT S.O. WHO IS CURRENTLY AN INPT.AND THEN WAS GOING TO GO HOME FROM THERE.NO C/O PAIN
--- NOTE | 2016-09-06 15:30 | NUR ---
HOME HEALTH WAS ALSO CALLED TO LET THEM KNOW THAT ABIGAIL WAS DISCHARGED TODAY.
--- NOTE | 2016-09-14 15:21 | NUR ---
Several attempts made to reach patient for a post hospitalization follow up call. Unable to reach patients.
[2016-10-16] MEDS ORDERED: NITROFURANTOIN100 MG PO (13:59)
== END 2016-09-06 15:25 | disposition home health service (06) | DRG 982 ==
LOC: GPCU 06:14 → GSDC 06:14 → GMSU 06:14 → GPOC 10:00 → GPCU 13:02 → GMSU 23:00 → GSDC 09-03 17:30 → GMSU 09-06 15:25
PROVIDERS: Family Medicine; ADMIT Orthopaedic Surgery Hand Surgery
PROC: 0JBF0ZX Excision of Left Upper Arm Subcutaneous Tissue and Fascia, Open Approach, Diagnostic (ICD-10-PCS; principal; 2016-09-02)
PROC: 01Q40ZZ Repair Ulnar Nerve, Open Approach (ICD-10-PCS; principal; 2016-09-02)
PROC: 01Q50ZZ Repair Median Nerve, Open Approach (ICD-10-PCS; principal; 2016-09-02)
DX: C44.629 Squamous cell carcinoma of skin of left upper limb, including shoulder (principal); I50.42 Chronic combined systolic (congestive) and diastolic (congestive) heart failure; I48.0 Paroxysmal atrial fibrillation; R00.1 Bradycardia, unspecified; E11.9 Type 2 diabetes mellitus without complications; J44.9 Chronic obstructive pulmonary disease, unspecified; Z87.891 Personal history of nicotine dependence; Z85.51 Personal history of malignant neoplasm of bladder; Z85.46 Personal history of malignant neoplasm of prostate; G47.33 Obstructive sleep apnea (adult) (pediatric); E66.9 Obesity, unspecified; Z95.1 Presence of aortocoronary bypass graft; Z79.01 Long term (current) use of anticoagulants; E03.9 Hypothyroidism, unspecified; E78.5 Hyperlipidemia, unspecified; I25.10 Atherosclerotic heart disease of native coronary artery without angina pectoris; Z95.5 Presence of coronary angioplasty implant and graft; I25.5 Ischemic cardiomyopathy
CPT/HCPCS: J0690; J1100; J1644; J2001; J2250; J2405; J2720; J7030; J7050

== ENCOUNTER 2016-10-19 10:01 | Day surgery (SDC) | payer MEDICARE, BC ==
[~2016-10-19] VITALS: Ht 177.8 cm; Wt 83.7 kg
--- NOTE | ~2016-10-19 | OR ---
PATIENT'S NAME: GUANAKO STEEN [facility] AGE: 80 Y [address] ROOM: [place] [address] [place]: [facility] [place] ADMIT DATE: 10/19/2016 OR/Procedure Report DISCHARGE DATE: 10/19/2016 FAMILY PHYSICIAN: Michi Mak MD ATTENDING PHYSICIAN: Poncho Bales SURGEON: Poncho Bales DO LABELING ASSOCIATE: Staff. DATE OF PROCEDURE: 10/19/2016 PREOPERATIVE DIAGNOSIS: Left arm wound infection. POSTOPERATIVE DIAGNOSIS: Left arm metastatic recurrent squamous cell carcinoma. PROCEDURE PERFORMED: Left arm debridement and left arm frozen section biopsy x2 of the deep anterior and posterior compartments. ANESTHESIA: Regional plus general. ESTIMATED BLOOD LOSS: Less than 100 mL. TOURNIQUET TIME: Zero. COMPLICATIONS: None. DRAINS: One [place] drain through the anterior volar forearm. JUSTIFICATION FOR PROCEDURE: Guanako Steen is an 80-year-old man with a history of metastatic squamous cell carcinoma which was previously resected from lymph node in his medial elbow area. He achieved a disease-free remission for little over a year and then showed evidence of recurrent mass. He was counseled as to treatment options, risks versus benefits, and necessary afterward care. He gave informed consent to proceed with a recurrent mass excision. The patient did well initially postoperatively, but then showed evidence of partial wound dehiscence and drainage from his wound suggesting a deep space infection as well as swelling distally. The patient gave informed consent to proceed with debridement of the arm for this particular procedure and any indicated procedures. PROCEDURE IN DETAIL: The patient was properly identified, both verbally and by name tag. He was taken to the operating suite and placed on the operating table in the supine position. The anesthesiologist administered a regional anesthetic on the left upper extremity and general anesthesia. Once adequate anesthesia was obtained, the left upper extremity was prepped PATIENT'S NAME: GUANAKO STEEN [facility] AGE: 80 Y [address] ROOM: [place] [address] [place]: [facility] [place] ADMIT DATE: 10/19/2016 OR/Procedure Report DISCHARGE DATE: 10/19/2016 FAMILY PHYSICIAN: Michi Mak MD ATTENDING PHYSICIAN: Poncho Bales and draped in the usual sterile fashion. A tourniquet was available, but was not used throughout the procedure. The patient's previous operative incision was reopened sharply. The mid aspect of the wound had been covered over with scab and when this was debrided away, there was some scant serous fluid expressed, but no purulence. Careful blunt dissection was carried down through the superficial to the deep fascia. The deep soft tissue showed small fluid collection, but did not appear infected. Cultures were taken from this and a stat Gram stain sent which was read as negative for bacterial elements. The wound was debrided from superficial to deep. In the deep posterior space, there was some disorganized tissue which appeared consistent with his previous squamous cell carcinoma. Stat frozen section biopsy was taken and sent off. This came back positive for metastatic squamous cell carcinoma. This tissue was taken from the triceps fascia adjacent to the humerus bone. A second sample was taken from the median nerve and brachial artery, perivascular, and perineural tissues in the anterior deep compartment of the arm. This too came back as metastatic squamous cell carcinoma. Careful visualization and palpation further distally in the forearm showed evidence of small palpable masses, consistent with lymph nodes distally. This would account for the swelling and inflammation in light of a no gross evidence of infection. A decision was made that extensive debridement would not be indicated at this point. He had already had two prior resections. He had also had dedicated chemotherapy and radiation for these issues. Intraoperatively, I contacted his oncologist, Dr. [place], and we discussed the case. She decided that she would perform a PET scan to see if there was evidence of tumor anywhere else in his body. If the tumor was more widely metastatic, then the treatment would be medical. However, if the tumor was still localized only to the upper extremity, he may be a candidate for above-elbow amputation versus shoulder disarticulation depending on the level of spread. With this in mind, the wound was copiously irrigated with saline. A [place] drain was placed exiting the skin distally on the volar anterior forearm in line with the surgical incision, and the skin was approximated with 3-0 nylon suture in an interrupted mattress stitch fashion. A sterile bulky bundle dressing was applied. The patient was aroused from general anesthesia, extubated by the anesthesiologist, and taken to the recovery room in good condition. Immediate postoperative examination in the recovery room showed good capillary refill distally in all 5 digits. Light touch sensation and motor function distally were equivocal due to persistence of the neurologic blockade. DO MING HSU/modl PATIENT'S NAME: GUANAKO TSEEN [facility] AGE: 80 Y [address] ROOM: [place] [address] LOCATION: [facility] [place] ADMIT DATE: 10/19/2016 OR/Procedure Report DISCHARGE DATE: 10/19/2016 FAMILY PHYSICIAN: Michi Mak MD ATTENDING PHYSICIAN: Poncho Bales /[id number] d: 10/26/162237 t: 11/03/16 1846, OPERATIVE SUMMARY
[~2016-10-19 10:01] MED LIST changes: +NITROFURANTOIN100 MG PO
[2016-10-19] MEDS ORDERED: PERCOCET 5-3251 EACH PO (14:16)
[2016-10-19] MEDS ORDERED: CLEOCIN150 MG PO (14:17)
== END 2016-10-19 14:59 | disposition disaster alternative care site (69) ==
LOC: G3N 10:01 → GSDC 10:01
PROC: 0X9F0ZX Drainage of Left Lower Arm, Open Approach, Diagnostic (ICD-10-PCS; principal; 2016-10-19)
PROC: 0X9 Anatomical Regions, Upper Extremities, Drainage (ICD-10-PCS; 2016-10-19)
DX: C79.89 Secondary malignant neoplasm of other specified sites (principal); J44.9 Chronic obstructive pulmonary disease, unspecified; E11.9 Type 2 diabetes mellitus without complications; Z85.858 Personal history of malignant neoplasm of other endocrine glands; Z79.84 Long term (current) use of oral hypoglycemic drugs; Z87.891 Personal history of nicotine dependence; Z79.899 Other long term (current) drug therapy; Z90.79 Acquired absence of other genital organ(s); Z98.890 Other specified postprocedural states
CPT/HCPCS: J0690; J2405; J3010; J7030

== ENCOUNTER → 2016-10-22 | Outpatient (CLI) | payer MEDICARE, BC ==
[~2016-10-22] MED LIST changes: +AUGMENTIN250 MG PO; +CLEOCIN150 MG PO; +CLINDAMYCIN HC300 MG PO; +MELATONIN3 MG PO; +PROTONIX40 M1 PO
== END | disposition disaster alternative care site (69) ==
LOC: GKIC 11:14
DX: C76.42 Malignant neoplasm of left upper limb (principal); C79.89 Secondary malignant neoplasm of other specified sites; E83.42 Hypomagnesemia; D64.81 Anemia due to antineoplastic chemotherapy; L82.1 Other seborrheic keratosis; R91.8 Other nonspecific abnormal finding of lung field; R21 Rash and other nonspecific skin eruption
CPT/HCPCS: A9552

== ENCOUNTER 2016-11-02 00:57 | Emergency (ER) | payer MEDICARE, BC ==
--- NOTE | ~2016-11-02 | ER ---
PATIENT'S NAME: ABIGAIL STEEN [facility] AGE: 81 Y [address] ROOM: [place] [address] LOCATION: [facility] ADMIT DATE: 11/02/2016 ER/Outpatient Report DISCHARGE DATE: FAMILY PHYSICIAN: Michi Mak MD ATTENDING PHYSICIAN: Olga Layton HISTORY OF PRESENT ILLNESS: An 81-year-old male who presents today with a chief complaint of fall with positive LOC and bleeding from the back of his head. The patient was walking with his significant other, trying and get her back into the house, up the wheelchair ramp to the house, he slipped and fell, hit the back of his head plus LOC. It was unclear how long he was out for, but the patient reports being dazed and mildly nauseous when he came through and has just this pain at the back of his head. Denies any neck pain though. The patient rates the pain at 2/10. Concerned because he is on Eliquis for AFib. No other complaints at this time. PAST MEDICAL HISTORY: Includes cancer of the left arm for which he is doctoring in the [facility] and is getting consultation for whether that needs to be amputated, COPD, atrial fibrillation on Eliquis, and CPAP with CPAP at night. PAST SURGICAL HISTORY: Includes left arm incision, right knee repair, left carpal tunnel, and hernia repair. SOCIAL HISTORY: Ex-smoker, but has quit for many years. Denies drugs or alcohol. MEDICATIONS: Please see med list. ALLERGIES: PROCAINAMIDE AND IV CONTRAST DYE. REVIEW OF SYSTEMS: Reviewed by me and negative with the exception of those discussed in HPI. PHYSICAL EXAMINATION: VITAL SIGNS: Blood pressure is 127/60, heart rate 72, respiratory rate 18, temp is 96, and satting 94% on room air. GCS 15. GENERAL: The patient is well-appearing, he is lying in stretcher, not altered, not actively vomiting or retching. HEENT: Pupils are 3-mm, equal, and reactive to light. He does not have any nystagmus. He has no hemotympanum. He has no facial tenderness at all PATIENT'S NAME: ABIGAIL STEEN [facility] AGE: 81 Y [address] ROOM: [place] [address] LOCATION: [facility] ADMIT DATE: 11/02/2016 ER/Outpatient Report DISCHARGE DATE: FAMILY PHYSICIAN: Michi Mak MD ATTENDING PHYSICIAN: Olga Layton either. The back of his head he does not have a laceration, there is a small hematoma with some oozing from abrasion, but I do not see a laceration. He has no C-spine tenderness. HEART: Heart rate is irregular. LUNGS: Lungs sounds sound clear. ABDOMEN: Soft, nontender, nondistended. SKIN: No other abrasions on his hands or lower extremity. He does have his left upper extremity wrapped and he says it has been like that and he did not fall on it and states that it is the cancer in his arm that he is going to see a doctor in [place] for it tomorrow. NEURO: He is alert and oriented x4. GCS 15. Intact grasp strength. No pronator drift. Strength bilateral upper extremities are 5/5 and lower extremities are 5/5. Cranial nerves 2 through 12 are intact. EMERGENCY ROOM COURSE: A CT head was done for this fall with positive LOC on Eliquis and that was read as negative for any acute bleed or fracture. I did discuss this with the patient's daughter Agustina at [phone] and updated her on what we did in the ER and the negative CT finding. One of the officers in [facility] will be helping us get this patient home. She feels comfortable with this plan and so is the patient, so will be discharged home safely with one of the [facility] officers. IMPRESSION: Fall on anticoagulation. MD MARYCRUZ AQUINO/evl /[id number] d: 11/02/16 0351 t: 11/05/16 1818, OUTPATIENT REPORT
[~2016-11-02 00:57] MED LIST changes: -AUGMENTIN250 MG PO; -CLINDAMYCIN HC300 MG PO; -MELATONIN3 MG PO; -PROTONIX40 M1 PO
== END 2016-11-02 02:20 | disposition disaster alternative care site (69) ==
LOC: GACC 00:57
DX: S00.93XA Contusion of unspecified part of head, initial encounter (principal); J44.9 Chronic obstructive pulmonary disease, unspecified; I48.91 Unspecified atrial fibrillation; Z88.8 Allergy status to other drugs, medicaments and biological substances; Z91.041 Radiographic dye allergy status; Z79.899 Other long term (current) drug therapy; W19.XXXA Unspecified fall, initial encounter

== ENCOUNTER → 2016-11-02 | Outpatient (CLI) | payer MEDICARE, BC | END | disposition disaster alternative care site (69) | LOC: GAMB 00:36 | DX: S06.9X9A Unspecified intracranial injury with loss of consciousness of unspecified duration, initial encounter (principal); S01.81XA Laceration without foreign body of other part of head, initial encounter; I48.91 Unspecified atrial fibrillation; W00.9XXA Unspecified fall due to ice and snow, initial encounter | CPT/HCPCS: A0425; A0429 ==

== ENCOUNTER → 2016-11-17 | Outpatient (CLI) | payer MEDICARE, BC ==
[~2016-11-17] MED LIST changes: +AUGMENTIN250 MG PO; +CLINDAMYCIN HC300 MG PO; +MELATONIN3 MG PO; +PROTONIX40 M1 PO
[2016-11-17 12:57] LABS: CREATININE 1.5 mg/dL (0.6-1.3)
== END | disposition disaster alternative care site (69) ==
LOC: GRAD 11:57 → GLAB 12:00
PROVIDERS: Orthopaedic Surgery
DX: C76.42 Malignant neoplasm of left upper limb (principal); Z98.890 Other specified postprocedural states

== ENCOUNTER 2016-11-18 11:41 | Inpatient (IN) | payer MEDICARE, BC ==
[~2016-11-18] VITALS: Ht 177.8 cm; Wt 80.8 kg
--- NOTE | ~2016-11-18 | CON ---
PATIENT'S NAME: ABIGAIL STEEN [facility] AGE: 81 Y [address] ROOM: [place] [address] [place]ATION: [facility] [place] ADMIT DATE: 11/18/2016 Consultation DISCHARGE DATE: FAMILY PHYSICIAN: ELLE BULL MD ATTENDING PHYSICIAN: JUDIE MORENO DATE OF CONSULTATION: 11/19/2016 REFERRING PHYSICIAN: Judie Moreno MD. REASON FOR VISIT: Left arm wound. HISTORY OF PRESENT ILLNESS: This is a very pleasant 81-year-old male patient who was admitted to [facility] with syncope. The patient has been on previous chemo and radiation for skin cancer. He reports [facility] will be making a recommendation today regarding possible left arm limb amputation. He reports 3/10 arm pain. He currently is completing wet-to-dry dressing changes daily at home. He was supposed to follow up with Dr. Bales in 2 weeks for left arm suture removal. The patient denies constitutional symptoms including fevers, chills, or sweats. He reports a good oral intake. He denies chest pain or shortness of breath. He does admit to benign positional vertigo. He has worked with physical therapy for a vestibular training in the past. He admits to falls over the past 2 weeks. He does not lose consciousness when he falls. He complains of dizziness and lightheadedness at that time. The patient denies changes in bowel habits. 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 PAST SURGICAL HISTORY: Coronary artery bypass grafting, cardiac stents, umbilical hernia repair, bilateral inguinal hernia repair, left eye surgery, cataract surgery, prostatectomy, cystoscopy with excision of lesions, tonsillectomy and total of 3 surgical interventions to his left arm. FAMILY HISTORY: His mother suffered from Alzheimer's. PATIENT'S NAME: ABIGAIL STEEN [facility] AGE: 81 Y [address] ROOM: [place] [address] LOCATION: [facility] [place]MIT DATE: 11/18/2016 Consultation DISCHARGE DATE: FAMILY PHYSICIAN: ELLE BULL MD ATTENDING PHYSICIAN: JUDIE MORENO SOCIAL HISTORY: The patient lives with his in [place], [place]. 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 He quit smoking in 1997, but previously was a 1 per day smoker for 30 years. He reports drinking 1 alcoholic beverage before bed. 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 ALLERGIES: PROCAINAMIDE AND IODINE CONTRAST MEDIA. CURRENT MEDICATIONS: Please refer to the medication administration record. REVIEW OF SYSTEMS: All are negative except as mentioned above in the HPI. PHYSICAL EXAMINATION: VITAL SIGNS: Temperature 97.9, pulse 56, respiration 16, blood pressure 153/83, pulse oximetry 96% on room air. Height 5 feet 10 inches and weight 80.8 kg. GENERAL: The patient is alert and oriented x3. Very pleasant with cares. Excellent historian. HEENT: Head: Normocephalic, atraumatic. NECK: Supple. NEUROLOGICAL: Grossly nonfocal. MUSCULOSKELETAL: Active range of motion in all 4 extremities. EXTREMITIES: +2 left radial pulse. Capillary refill intact. Extremity warm to touch. SKIN: Left anterior upper arm wound measures 1.0 cm width x 6.0 length by 0.7 cm depth. Wound bed is a mixture of yellow slough and moist pink tissue. Small amount of bloody exudate. Proximal aspect slightly erythemic. The upper periwound has intact sutures. No odor. No induration or fluctuance. LABORATORY DATA: White blood cell count 4.3, hemoglobin 11.1, hematocrit 32.6, platelets 115. Sodium 140, potassium 4.9, chloride 106, bicarb 26, BUN 17, creatinine 1.4, glucose 189, albumin 3.2, and TSH 1.670. ASSESSMENT AND PLAN: Again, this is a very pleasant 81-year-old male patient who was admitted to the hospital with syncope. Wound Care consult to evaluate and assess a left upper arm wound secondary to metastatic recurrent squamous cell carcinoma. 1. Left upper arm wound secondary to metastatic recurrent squamous cell carcinoma. Wound is down to subcutaneous tissue. The patient has had PATIENT'S NAME: ABIGAIL STEEN [facility] AGE: 81 Y [address] ROOM: [id number] [place], [place] [address] LOCATION: [facility] [place]MIT DATE: 11/18/2016 Consultation DISCHARGE DATE: FAMILY PHYSICIAN: ELLE BULL MD ATTENDING PHYSICIAN: JUDIE MORENO this site for over 2 years. He has had [address] Bales and has been sent to [place] and has also finished up chemo and radiation with Dr. [place]. He reports [facility] is making a recommendation today regarding limb amputation. The patient reports his family is on board with limb amputation, but he is still indecisive about the decision. Surprisingly, he has no family history of skin cancer. He reported the area originally started out on his left finger and then gradually progressed. The patient reports pain is controlled, but at times does creep up to an 8/10, but only lasts about 30 seconds and then goes away on its own. The patient does complain of some discomfort with wet-to-dry mechanical dressing changes. The site has poor potential for healing at this point. We discussed different dressing options. We will apply Xeroform to the site covering with Kerlix gauze and I instructed nursing to change daily and p.r.n. saturation. Dr. Bales will take out sutures in 2 weeks. I wish the patient good luck in his decision. 2. Syncope. Hospitalist is managing. 3. Type 2 diabetes mellitus. On Accu-Cheks and sliding scale insulin. I would like to thank Dr. Moreno for this consultation. CARISSA RUFF APRN FOR MD FELICIANO YOUNG/rogelio /[id number] d: 11/20/16701 t: 11/27/16 1244, CONSULTATION REPORT
--- NOTE | ~2016-11-18 | DS ---
PATIENT'S NAME: ABIGAIL STEEN [facility] AGE: 81 Y [address] ROOM: [place] [address] LOCATION: [facility] [place] ADMIT DATE: 11/18/2016 Discharge Summary DISCHARGE DATE: 11/20/2016 FAMILY PHYSICIAN: Michi Mak MD ATTENDING PHYSICIAN: Joycelyn Moreno FINAL DIAGNOSES: 1. Near syncope. 2. Heekeqiq-vi-hwwbme aortic stenosis. 3. Paroxysmal atrial fibrillation. 4. Essential hypertension. 5. Diabetes mellitus. Please see the history and physical dictated by Dr. Moreno for details of admission. In short, the patient was admitted after having a near syncopal episode. He had an episode where he had fallen and sustained a concussion a week ago. LABORATORY DATA: On admit; sodium 140, potassium 4.9, chloride 106, CO2 of 27, BUN 17, creatinine 1.4, alkaline phosphatase 153, AST 10, ALT 16, and mag 2. Cardiac enzymes were negative. White blood cell count was 4.3, hemoglobin 11.1, hematocrit 32.6, and platelet count 115. Chest x-ray on admission did not show any evidence of infection. CT scan of the head done on admission, was negative for any acute process. CARDIOVASCULAR DATA: Echocardiogram returned with an ejection fraction of 60%, he had grade 1 diastolic dysfunction, he had vqav-jb-yosakwyd mitral regurgitation, xsswjyen-gy-feezyg aortic stenosis with a peak velocity 3.3 m/sec and a valve area of 0.84 cm2. HOSPITAL COURSE: The patient was admitted with a near syncopal episode. There was concern for the cause of this. He was admitted and placed on telemetry. Echocardiogram and carotid Dopplers were obtained. Medicines that were felt to be offensive such as Benadryl are withheld. He also during the hospital stay did have an open wound on his left forearm, for which the wound ostomy nurses did see him. Because of his history of aortic stenosis, it was felt that he needed very close monitoring and that his near syncope could very well be related to worsening of the valve. Echocardiogram did return, showing that he did have significant bejuihjt-sg-lxoykd aortic stenosis with valve area of 0.84 cm2. At that time, his Prinivil was discontinued. I did speak with Dr. Alfred, his metallurgical specialist, who felt that it was safe for discharge, but could follow up as an outpatient to proceed. The patient did voice understanding of this. The patient is discharged to home. Home Health will resume. He will see Dr. Anibal Alfred on November 24 at [address] Michi Mak on November 23 in the morning. I did tell him that his carotid Doppler PATIENT'S NAME: ABIGAIL STEEN [facility] AGE: 81 Y [address] ROOM: [address] [place] [id number] LOCATION: [facility] [place] ADMIT DATE: 11/18/2016 Discharge Summary DISCHARGE DATE: 11/20/2016 FAMILY PHYSICIAN: Michi Mak MD ATTENDING PHYSICIAN: Joycelyn Moreno studies are pending and please have Dr. Mak get those for him. MEDICATIONS: 1. Lipitor 40 mg at bedtime. 2. Spiriva 2 inhalations at bedtime. 3. CPAP at night. 4. Protonix 40 mg daily. 5. Sotalol 80 mg twice daily. 6. Glipizide 2.5 mg twice daily. 7. Lasix 40 mg every 48 hours. 8. Synthroid 50 mcg daily. 9. Apixaban 5 mg daily. 10. ProAir 2 puffs twice daily as needed. 11. O2, 2 L at night with his CPAP. 12. Percocet 5/325 one to two every 4 hours as needed for pain. 13. Lasix 60 mg every other day. 14. Melatonin 3 mg at bedtime. He was asked to stop his Tylenol PM and the Prinivil. I did leave a message to speak with Dr. Mak regarding this discharge. SPENCER NOBLE MD LAW/modl /[id number] CC: MD Michi Dahl MD d: 11/21/16 0351 t: 12/11/16 1832, DISCHARGE SUMMARY
--- NOTE | ~2016-11-18 | ECHO ---
Transthoracic Echocardiography Report (TTE) Demographics Patient Name ABIGAIL STEEN Date of Study 11/19/2016 Patient Number [id number] Visit Number [id number] Date of 1935 Room Number G3208 Accession Number [id number] Gender Male Age 81 year(s) Referring Aubree Castorena MD Manager Books Ector Langley RDCS, Physician RVT Physician Interpreting Suellen Clark Technical Aid Physician Kell DAVISON Supervising Ordering Physician Tiffanie Mayorga MD/MLP Nurse Stress Residential [facility] Facility Manager Conclusions Contractility Score Summary Normal Left Ventricular contractility was noted. Summary The estimated left ventricular ejection fraction is 60%. The left ventricle is normal in size . Diastolic assessment reveals Grade I diastolic dysfunction. inferoseptal hypokinesis Mildly reduced right ventricular function. The left atrium is mildly to moderately dilated. Mild mitral regurgitation by color Doppler. There is mild to moderate aortic regurgitation by color Doppler. There is moderate to severe aortic stenosis by the Continuity Equation. The peak velocity is 3.33 m/s, the mean gradient is 28 mmHg, and the valve area based on the continuity equation is 0.84 cm2. Mild tricuspid regurgitation by color Doppler. Normal estimated pulmonary artery pressure. Procedure Type of Study TTE procedure:2D Echocardiogram. Procedure Date Date: 11/19/2016 Start: 01:35 PM Study Location: Echo Lab Technical Quality: Adequate visualization Indications:Syncope and Aortic stenosis. Appropriate Use Criteria: 9 Patient Status: Routine HR: 61 bpm Allergies - Other:(procanamide. myelogram dye.). M-Mode/2D Measurements LV Diastolic Dimension: 3.5 cm LV Systolic Dimension: 1.85 cm LV Septum Diastolic: 0.76 cm LV PW Diastolic: 0.84 cm Cardiac Output: 4.08 l/min LA volume: 83 ml RV Diastolic Dimension: 3.9 cm LVOT: 2.1 cm LVOT VTI: 19.3 cm LV Stroke volume: 66.81 ml RV Mid: 1.91 cm RV Length: 6.83 cm TAPSE: 1.36 cm TDI-S': 6.25 cm/s Doppler Measurements AV Peak Velocity: 3.33 m/s MV Peak E-Wave: 0.66 m/s AV Peak Gradient: 44.36 mmHg MV Peak A-Wave: 1.22 m/s AV Mean Gradient: 28 mmHg MV E/A Ratio: 0.54 LVOT Peak Velocity: 0.96 m/s MV P1/2t: 125 msec AV P1/2t: 435 msec TR Gradient:27.04 mmHg PV Peak Velocity: 1.67 m/s Estimated RAP:5 mmHg PV Peak Gradient: 11.16 mmHg Estimated RVSP: 32 mmHg Estimated PASP: 32.04 mmHg E' Septal Velocity: 0.03 m/s A' Septal Velocity: 0.05 m/s E' Lateral Velocity: 0.07 m/s A' Lateral Velocity: 0.09 m/s Findings Left Ventricle The left ventricle is normal in size . Diastolic assessment reveals Grade I diastolic dysfunction. inferoseptal hypokinesis Right Ventricle Mildly reduced right ventricular function. Left Atrium The left atrium is mildly to moderately dilated. Right Atrium The right atrium is mildly dilated. IVC measures 1.89 cm with inspiratory collapse. Mitral Valve Mild mitral regurgitation by color Doppler. Aortic Valve There is mild to moderate aortic regurgitation by color Doppler. There is moderate to severe aortic stenosis by the Continuity Equation. The peak velocity is 3.33 m/s, the mean gradient is 28 mmHg, and the valve area based on the continuity equation is 0.84 cm2. Tricuspid Valve Mild tricuspid regurgitation by color Doppler. Normal estimated pulmonary artery pressure. Pulmonic Valve Normal pulmonic valve structure and function. Pericardial Effusion No evidence of pericardial effusion. Miscellaneous Visualized portions of the aortic root and ascending aorta appear normal in size. Pleural Effusion No evidence of pleural effusion. Contractility Score LV regional wall motion:(0-Non visualized 1-Normal 2-Hypokinesis 3-Akinesis 4-Dyskinesis 5-Aneurysm) Signature dtt: Jack Ken dtd: 11/19/16 1335 Physician Self Edit
--- NOTE | ~2016-11-18 | ENPV ---
Carotid Duplex Study Demographics Patient Name ABIGAIL STEEN Date of Study 11/19/2016 Patient Number [id number] Gender Male Date of 1935 Age 81 Visit Number [id number] Height 70 Accession Number [id number] Weight 178 Referring Aubree Castorena MD Interpreting David Bhatti MD Physician Physician Physician Ordering Tiffanie Hirsch Inside Barrel Polisher Physician Tierra DAVISON Hospitalist Ector Langley RD, T Conclusions Summary Bilateral borderline 50% stenosis. Procedure Type of Study: Cerebral:Carotid, Carotid Doppler Bilateral. Indications for Study:Syncope. Appropriate Use Criteria:9 Allergies - Other:(procanamide. myelogram dye.). Patient Status:Routine. Study Location:Vascular Lab. Technical Quality:Good visualization. Velocities are measured in cm/s ; Diameters are measured in cm Carotid Right Measurements Carotid Left Measurements + +--------+--------+ + + + +--------+ --------+ + + !Location !PSV !EDV !Angle !%Stenosis ! !Location !PSV ! EDV !Angle !%Stenosis ! + +--------+--------+ + + + +--------+ --------+ + + !Prox CCA !133 !10 !60 ! ! !Prox CCA !165 ! 10 !60 ! ! + +--------+--------+ + + + +--------+ --------+ + + !Dist CCA !143 !15 !60 ! ! !Dist CCA !161 ! 15 !60 ! ! + +--------+--------+ + + + +--------+ --------+ + + !Prox ICA !94 !12 !60 ! ! !Prox ICA !136 ! 20 !60 ! ! + +--------+--------+ + + + +--------+ --------+ + + !Dist ICA !110 !15 !60 ! ! !Dist ICA !126 ! 24 !60 ! ! + +--------+--------+ + + + +--------+ --------+ + + !Prox ECA !164 ! !60 ! ! !Prox ECA !180 ! !60 ! ! + +--------+--------+ + + + +--------+ --------+ + + !Vertebral !79 !13 !60 ! ! !Vertebral !53 ! 12 !60 ! ! + +--------+--------+ + + + +--------+ --------+ + + !Subclavian !149 ! !60 ! ! !Subclavian !210 ! !60 ! ! + +--------+--------+ + + + +--------+ --------+ + + - There is antegrade vertebral flow noted on the right side. - There is antegrade verte bral flow noted on the left side. - Add'l Measurements:Subclavian PRV 149 cm/sICAPSV/CCAPSV - Add'l Measurements:Subcl lisseth PRV 210 cm/sICAPSV/CCAPSV 0.83.ICAEDV/CCAEDV 1.5. 0.82.ICAEDV/CCAEDV 2.4. Impressions Right Impression There is a moderate degree of smooth heterogeneous plaque in the right internal carotid artery . Left Impression There is a moderate degree of smooth heterogeneous plaque in the left internal carotid artery . Signature dtt: ALLEGRA GARZA dtd: 11/19/16 1358 Physician Self Edit
--- NOTE | ~2016-11-18 | HP ---
PATIENT'S NAME: ABIGAIL STEEN [facility] AGE: 81 Y [address] ROOM: [place] [address] LOCATION: [facility] [place] ADMIT DATE: 11/18/2016 History & Physical DISCHARGE DATE: FAMILY PHYSICIAN: ELLE BULL MD ATTENDING PHYSICIAN: JUDIE GERMAN DATE OF SERVICE: CHIEF COMPLAINT: Syncope/near syncopal episode/fall 2 weeks ago. HISTORY OF PRESENT ILLNESS: An 81-year-old very pleasant gentleman with a past medical history of atrial fibrillation, on sotalol as well as anticoagulation with Eliquis, type 2 diabetes mellitus, and recurrent left arm squamous cell carcinoma, presented to the emergency department from home when he was observed to have a near syncopal episode this morning when he felt that he was dizzy, and by dizzy he means both room spinning around and feeling to pass out. He had been having these episodes for couple of days now. Two weeks ago, he had one other similar episodes and fell down and hit his head at that point. At that point, he came to the emergency department, a CAT scan was done, which did not reveal any acute intracranial changes. Today, we decided to admit this patient to work up his syncopal episodes. On my encounter, he is not complaining of any headache, no current dizziness, no weakness anywhere in the body. No trouble swallowing. No trouble with the eyes. No chest pain, shortness of breath, abdominal pain, PND, orthopnea, or leg swelling. REVIEW OF SYSTEMS: All other systems reviewed and were negative except what is mentioned in the HPI. PAST MEDICAL HISTORY: Atrial fibrillation, currently on sotalol as well as Eliquis for anticoagulation; type 2 diabetes mellitus; history of lower extremity edema; history of congestive heart failure, preserved ejection fraction; history of bladder cancer; currently having recurrent problem with squamous cell carcinoma of the left arm. PAST SURGICAL HISTORY: Prior surgeries include arm surgery, coronary artery bypass grafting 18 years ago. ALLERGIES: THE PATIENT IS ALLERGIC TO PROCAINAMIDE WELL IODINE. PATIENT'S NAME: ABIGAIL STEEN [facility] AGE: 81 Y [address] ROOM: [place] [address] LOCATION: [facility] [place] ADMIT DATE: 11/18/2016 History & Physical DISCHARGE DATE: FAMILY PHYSICIAN: ELLE BULL MD ATTENDING PHYSICIAN: JUDIE GERMAN MEDICATIONS: Medications are being reconciled right now. SOCIAL HISTORY: Former smoker. No alcohol or drug abuse. FAMILY HISTORY: Family history is significant for brain and lung tumors in sister. PHYSICAL EXAMINATION: VITAL SIGNS: Blood pressure 155/66, 52, 16, afebrile. GENERAL: In no acute distress. Alert and oriented x3. HEENT: Head: Atraumatic, normocephalic. Eyes: Nonicteric. No pallor. Oropharynx: Dry mucous membranes. CARDIOVASCULAR: Low sound S1 and S2. Whirlpool murmur heard at the apex region. LUNGS: Clear to auscultation bilaterally. ABDOMEN: Soft, nontender, nondistended. Bowel sounds are present. EXTREMITIES: Lower extremities do not reveal any edema or cyanosis. Left arm shows surgical incision site proximal to elbow. There is serosanguineous discharge noted. NEUROLOGIC: Cranial nerves 2 through 12 intact. No motor or sensory deficit. Reproduction of dizziness achieved with Savana's maneuvers. IMAGING DATA: A CAT scan was done, which was negative for any bleeding or midline shift but did show small right parietal meningioma no skull fracture noted, which is new since April 22, 2016. LABORATORY DATA: Lab work has been fairly unremarkable except creatinine was 1.4, which is the patient's baseline. Troponin one set was negative. Chest x-ray was done, which was without any abnormality. ASSESSMENT AND PLAN: 1. Syncope/near syncopal episodes. 2. Type 2 diabetes mellitus. 3. Atrial fibrillation, on sotalol and Eliquis, moderate aortic stenosis on the echocardiography done in 2015. 4. Coronary artery disease, status post CABG as well as PCI. 5. Heart failure with preserved ejection fraction, appears compensated at this point. 6. Chronic kidney disease stage 3. 7. Chronic hypoxic respiratory failure, on 2 L of oxygen at nighttime with CPAP. PATIENT'S NAME: ABIGAIL STEEN [facility] AGE: 81 Y [address] ROOM: [address] [address] LOCATION: [facility] [place] ADMIT DATE: 11/18/2016 History & Physical DISCHARGE DATE: FAMILY PHYSICIAN: ELLE BULL MD ATTENDING PHYSICIAN: JUDIE GERMAN 8. Obstructive sleep apnea, uses CPAP. 9. Chronic obstructive pulmonary disease. PLAN: We are going to admit this patient for further workup of his syncopal episodes. We are going to get echocardiography as well as Dopplers of the carotids. We are going to obtain orthostatic vitals and give fluids if positive. We are going to require TSH as well. Wound care consult for the left arm wound. Sliding scale insulin for his diabetes. We will restart his anticoagulation and all other home medications once reconciled. We will follow this patient. MD WOLF SIMMONS/rogelio /[id number] D: [id number] T: [id number] HISTORY & PHYSICAL
--- NOTE | ~2016-11-18 | ER ---
PATIENT'S NAME: ABIGAIL STEEN [facility] AGE: 81 Y [address] ROOM: [place] [address] LOCATION: [facility] ADMIT DATE: 11/18/2016 ER/Outpatient Report DISCHARGE DATE: FAMILY PHYSICIAN: ELLE MAK MD ATTENDING PHYSICIAN: JUDIE MORENO Time of Arrival: 1141 hours. Time of Evaluation: 1141 hours. IDENTIFICATION: An 81-year-old male. CHIEF COMPLAINT: Near syncope. HISTORY OF PRESENT ILLNESS: The patient is an 81-year-old male, who 2 weeks ago states he fell and had a concussion. He was seen here in the emergency room and had a negative head CT. Since that time, he said he just has not felt quite right. He has had some dizzy episodes, which sound like benign positional vertigo, and he has had some vestibular training with physical therapy, which he thought maybe helped a little, but then today was a little bit different. He did have some spinning sensation but also some lightheaded. Home Health was there visiting his , and he was assisted to the floor. He did not hit his head and no injury from the fall. He denied any chest pain. No cough or shortness of breath. ALLERGIES: TO PROCAINAMIDE AND CT CONTRAST DYE. CURRENT MEDICATIONS: 1. Atorvastatin 40 mg at h.s. 2. Spiriva 2 puffs q.h.s. 3. CPAP. 4. Lisinopril 2.5 mg daily. 5. Omeprazole 40 mg daily. 6. Sotalol 80 mg b.i.d. 7. Glipizide 5 mg 1/2 tablet twice daily. 8. Furosemide 40 mg q.48 hours and 60 mg q.48 hours. 9. Levothyroxine 50 mcg daily. 10. Tylenol PM 2 tabs at h.s. 11. Apixaban 5 mg daily. 12. Albuterol 2 puffs b.i.d. 13. O2 2 L with CPAP and 3 L as needed. 14. Lidex ointment p.r.n. PATIENT'S NAME: ABIGAIL STEEN [facility] AGE: 81 Y [address] ROOM: [place] [address] LOCATION: [facility] ADMIT DATE: 11/18/2016 ER/Outpatient Report DISCHARGE DATE: FAMILY PHYSICIAN: ELLE MAK MD ATTENDING PHYSICIAN: JUDIE MORENO. Percocet 5/325 one to two q.4 hours p.r.n. IMMUNIZATIONS: 1. Pneumovax was in 2005. 2. Flu shot in May 2016. 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 PRIOR SURGERIES: Left carpal tunnel repair; coronary artery bypass graft in 1998; hernia repair in 2008; prostatectomy in 2009 for prostate cancer; bladder tumor in 2011, status post treatment with BCG; cataract excisions; left malignant tumor excision from the medial arm; left ulnar neuroplasty in situ at the elbow; left arm debridement with frozen sections on November 03. SOCIAL HISTORY: The patient lives here in [place] with his . Tobacco use, quit in 1996. Alcohol use, denies. REVIEW OF SYSTEMS: The patient has mild aortic stenosis per echocardiogram in August 2015. All systems reviewed and negative other than what is noted in the HPI. PHYSICAL EXAMINATION: VITAL SIGNS: Weight 84.9 kg, blood pressure 195/83, pulse 60, respirations 16, temperature 97.1, sats 97%. GENERAL: An 81-year-old male, in no acute distress. HEENT: Head: Normocephalic, atraumatic. Ears: TMs translucent both ears. Nose: Mucosa pink, no lesions. Mouth: No lesions. Pharynx benign. Eyes: Pupils equal and reactive to light and accommodation. Extraocular movements intact. No nystagmus. NECK: Supple. No lymphadenopathy. LUNGS: Clear to auscultation. Breath sounds are equal. No rhonchi, wheezes, or rales. HEART: Regular rate and rhythm. No rub or gallop. The patient has a 2/6 systolic murmur. ABDOMEN: Bowel sounds present, soft, nondistended, nontender. SKIN: [place], warm, and dry. No lesions or rashes noted. NEURO: The patient is alert and oriented x4. Cranial nerves 2 through 12 PATIENT'S NAME: [facility]AIL [facility] AGE: 81 Y [address] ROOM: [place] [address] LOCATION: [facility] [place] [facility] ADMIT DATE: 11/18/2016 ER/Outpatient Report DISCHARGE DATE: FAMILY PHYSICIAN: ELLE MAK MD ATTENDING PHYSICIAN: JUDIE MORENO grossly intact. Motor strength 5/5 throughout. Sensation is intact to light touch. EXTREMITIES: On exam, left elbow is dressed and wrapped. This was not unwrapped here. LABORATORY DATA AND X-RAYS: Sodium 140, potassium 4.9, chloride 106, CO2 of 27, BUN 17, creatinine 1.4, which is stable, blood sugar 189. Liver enzymes normal. Magnesium 2.0. CPK 40, CK-MB 1.2, troponin I less than 0.040. INR 1.04. Pre-hospital EKG: Normal sinus rhythm at 60 beats per minute. Nonspecific ST- T wave changes are noted. A 12-lead EKG here, normal sinus rhythm at 57 beats per minute. Nonspecific ST-T wave changes. No acute ST elevation or depression and no significant change when compared with EKG from September 04, 2016. One-view chest x-ray: Emphysematous changes, old granulomatous disease, implanted vascular access catheter. Head CT without contrast. No acute hemorrhage or midline shift. Stable since prior CT imaging. IMPRESSION: 1. Near syncopal episode. 2. Lightheaded and dizziness for the past 2 weeks. 3. Recurrent malignant squamous cell carcinoma. PLAN: Discussed with Dr. Mak, his primary care physician. He would like the Hospitalist to provide admission. Dr. Moreno evaluated the patient in the emergency room and planned for admission to telemetry for further observation and evaluation of the syncopal episode. MIKHAIL KRAUS MD CAR/modl /[id number] d: 11/18/16 2349 t: 11/19/16 0650, OUTPATIENT REPORT
[~2016-11-18 11:41] MED LIST changes: -AUGMENTIN250 MG PO; -CLINDAMYCIN HC300 MG PO; -MELATONIN3 MG PO; -PROTONIX40 M1 PO
[2016-11-18 12:19] LABS: BASOPHIL % 0.5 %; EOSINOPHIL # 0.2 K/uL (0.0-0.5); EOSINOPHIL % 5.4 %; HEMATOCRIT 32.6 % (33.0-50.0); HEMOGLOBIN 11.1 g/dL (11.0-16.0); LYMPHOCYTE # 1.3 K/uL (0.8-4.0); MCV 91.1 fl (83.0-98.0); MONOCYTE # 0.5 K/uL (0.0-1.0); MONOCYTE % 10.7 %; MPV 10.5 fl (9.4-12.4); NEUTROPHIL # (ANC) 2.3 K/uL (1.4-9.0); NEUTROPHIL % 52.4 %; NRBC % 0 /100WBC (0-0.00); RBC 3.58 M/uL (3.50-5.50); RDW-CV 12.4 % (11.9-14.6); WBC 4.3 K/uL (4.0-11.0)
[2016-11-18 12:21] LABS: PLATELET COUNT 115 K/uL (150-450)
[2016-11-18 12:28] LABS: INR - (THERAPEUTIC) 1.04 (0.92-1.07); PROTIME 10.9 SECONDS (9.8-11.4); PTT 28 SECONDS (25-32)
[2016-11-18 12:41] LABS: ALBUMIN 3.2 gm/dL (3.5-5.0); ALK PHOS 153 IU/L (33-138); ALT 16 IU/L (12-78); ANION GAP 11.9 (10.0-19.0); AST 10 IU/L (10-40); BLOOD UREA NITROGEN 17 mg/dL (6-24); CALCIUM 8.8 mg/dL (8.5-10.5); CHLORIDE 106 mMol/L (96-110); CO2 27 mMol/L (22-32); CPK 40 IU/L (35-332); CREATININE 1.4 mg/dL (0.6-1.3); ESTIMATED GFR (MDRD EQUATION) 48; POTASSIUM 4.9 mMol/L (3.7-5.1); SODIUM 140 mMol/L (135-145); TOTAL BILIRUBIN 0.8 mg/dL (0.0-1.5); TOTAL PROTEIN 6.9 g/dL (6.0-8.4)
[2016-11-18] MEDS ORDERED: LASIX40 MG PO (15:42)
--- NOTE | 2016-11-18 16:40 | NUR ---
Pt is 81 y/o male admit for syncope for hospitalist. Pt alert and oriented x3. Resides at home with significant other and he's concerned about her because she has had some strokes in September of this year. Hx afib,htn,CABG,stents,hypercholest,ND, CAD,short term memory problems,DVT R leg,prostate ca,bladder ca,emphysema, COPD,hypothyroid,gerd,ulcer,DM,metastatic squamous cell CA upper left arm. PT here within the past month. Has incision to left upper arm with some dressing packed in it and sutures. Pt states he was at home and became dizzy and fell. The home health nurse visiting his significant other was there also and tried to catch him when fell.
--- NOTE | 2016-11-18 17:04 | NUR ---
Significant Event:Was admitted around 1514.See admission note.Has inner Lt upper arm incision with some sutures at lower end & gapping area above that is packed with some sort of gauze packing.WOC is to see.Is up with 1-2 assists.Some dizziness when first sits up.Pleasant. Follow up:
--- NOTE | 2016-11-19 03:58 | NUR ---
Significant Event: Pt alert and oriented. up with SBA walker and gait belt to BR. Tolerated activity well and denied being dizzy when standing. Hypertension at beginning of shift. Cpap was brought in by family. No c/o pain other than just having an IV in his hand which flushes well with no pain. Bed alarm on with no attempts to get out of bed. AC/Hs accucheck with no SSI given. Follow up: cont to Monitor
--- NOTE | 2016-11-19 13:29 | NUR ---
Met with patient, significant other Renate and daughter in room this morning. Introduced myself and my role with the CM department. Patient and Renate both have home health care from [facility]. [facility] helps patient with wound care of his arm and they help Renate with her ADL's. They have a private caregiver that comes into the home for 4 hours a week to assist with housekeeping and laundry. Guanako states they have termination clerk care insurance, but as recent as last week they contacted their agent and were told that they do not meet the criteria established on their termination clerk care plan so insurance states they will not pay for an HALFWAY or SNF at this time. Guanako and Renate are ready to transition to an HALFWAY, but cannot afford to do so unless their termination clerk care insurance helps with the cost. Guanako is also waiting to find out what the doctors are recommending regarding his arm and possible amputation. I spoke to Roni with [facility] at [phone] and she said that they recommend finding placement for Guanako as he has been falling a lot at home. She understands that they have been having difficulty with their termination clerk insurance coverage. Roni needs to know if Guanako is made inpatient at all during his stay. Will notify her if this happens. Will continue to follow and provide supports as needed.
--- NOTE | 2016-11-19 17:51 | NUR ---
AAOx3. Cooperative with cares. Up w/assist only, GB, and walker. Encourage to change positions slowly and dangle. VSS, afebrile, on RA; wears CPAP @NOC. Denies N/V/D and pain is not enough to require meds. Surgical wound to DI underside with stitches, well approximated but oozes serosanguinous fluid. Xerofoam, fluffy guaze, and kerlix change Qday. Echo and carotids dopplered today. Dr Black waiting for results. IV to RH s/l'd. BS AC/HS w/mild SSI; no coverage needed. Family at bedside.
--- NOTE | 2016-11-20 04:50 | NUR ---
Significant Event: Patient is alert and oriented x 3. VSS. Wears CPAP at night, on room air during the day. On telemetry due to history of A.fib, no calls this shift. Dressing to left upper arm is clean, dry, and intact. Up with 1 assist, walker, and gait belt. Right hand IV, saline locked. ACHS accuchecks, with carb count. Denies any pain. Patient is pleasant and cooperative with cares. Follow up:
--- NOTE | 2016-11-20 12:33 | NUR ---
Phone call from Roni with [facility] this morning at 0845 asking if patient was discharging today. Informed her that I had not been to floor yet, but I would let her know. Phone call from Kera with [facility] at 1030 stating they were told by their social service assistant, Yenny, that patient has already discharged to home and is planning on moving to [facility] apartment and paying privately for this. I informed her that patient was still a in the hospital and was made in patient late yesterday afternoon. I met with patient, Renate and daughter and they indicate that [facility] did come and assessed him yesterday and they do have an independent living apartment for him and Renate. Their current plan is to discharge back to home with continued home health care and move to independent living apartment at [facility] in the next two weeks. I called Kera back at [facility] ([phone]) and let her know this information. I also placed a note on patient discharge order page asking Dr. Black to dillan to resume home health care. Kera called back and needed information faxed to her regardin his hospital stay. I faxed the requested information to her at [phone]. Patient will likely discharge today or tomorrow with home health.
[2016-11-20] MEDS ORDERED: MELATONIN3 MG PO (13:31)
--- NOTE | 2016-11-20 14:08 | NUR ---
DISCHARGE: Pt. was explained education on aortic stenosis, controlling HTN, and new medication: melatonin. Verbalized understanding, no questions or concerns. Daughter and in room with patient. IV and tele d/c'd by primary RN. Left with all belongings, CPAP, and scripts. Taken in wheelchair to front door by aide and driven home by daughter. Will have home health at home.
== END 2016-11-20 14:25 | disposition home health service (06) | DRG 307 ==
LOC: GMED 11:41 → GMSU 14:36
PROVIDERS: Family Medicine; ADMIT Internal Medicine
DX: I35.0 Nonrheumatic aortic (valve) stenosis (principal); C79.2 Secondary malignant neoplasm of skin; J96.11 Chronic respiratory failure with hypoxia; I13.0 Hypertensive heart and chronic kidney disease with heart failure and stage 1 through stage 4 chronic kidney disease, or unspecified chronic kidney disease; I50.9 Heart failure, unspecified; E11.22 Type 2 diabetes mellitus with diabetic chronic kidney disease; R55 Syncope and collapse; I48.0 Paroxysmal atrial fibrillation; I25.10 Atherosclerotic heart disease of native coronary artery without angina pectoris; N18.3 Chronic kidney disease, stage 3 (moderate); J44.9 Chronic obstructive pulmonary disease, unspecified; C80.1 Malignant (primary) neoplasm, unspecified; G47.33 Obstructive sleep apnea (adult) (pediatric); Z86.718 Personal history of other venous thrombosis and embolism; Z85.51 Personal history of malignant neoplasm of bladder; Z87.891 Personal history of nicotine dependence; Z85.46 Personal history of malignant neoplasm of prostate; Z95.1 Presence of aortocoronary bypass graft; Z79.01 Long term (current) use of anticoagulants

== ENCOUNTER → 2016-11-18 | Outpatient (CLI) | payer MEDICARE, BC | END | disposition disaster alternative care site (69) | LOC: GAMB 11:25 | DX: R55 Syncope and collapse (principal); I48.2 Chronic atrial fibrillation; R42 Dizziness and giddiness; Z85.830 Personal history of malignant neoplasm of bone | CPT/HCPCS: A0425; A0427 ==

== ENCOUNTER 2017-01-23 17:41 | Inpatient (IN) | payer MEDICARE, BC ==
[~2017-01-23] VITALS: Ht 177.8 cm; Wt 82.7 kg
--- NOTE | ~2017-01-23 | HP ---
PATIENT'S NAME: STEEN [facility] AGE: 81 Y [address] ROOM: [place] [address] LOCATION: [facility] ADMIT DATE: 01/23/2017 History & Physical DISCHARGE DATE: FAMILY PHYSICIAN: ELLE BULL MD ATTENDING PHYSICIAN: Onel Rios DATE OF SERVICE: CHIEF COMPLAINT: Arm pain. HISTORY OF PRESENT ILLNESS: The patient is an 81-year-old male, who has a history of several medical issues, who presented with arm pain and swelling of the left arm. The patient has been treated for a squamous cell carcinoma also in that arm and has been following Wound Care. That arm just recently grew out MRSA. The patient denies any chest pain, shortness of breath, fevers, chills, nausea or vomiting, but has not been sleeping lately. PAST MEDICAL HISTORY: 1. Atrial fibrillation. 2. Diabetes mellitus type 2, non-insulin dependent. 3. Edema. 4. Emphysema. 5. Congestive chronic diastolic heart failure. 6. History of bladder cancer. 7. History of malignant neoplasm of the prostate. 8. Hypercholesterolemia. 9. Plantar fasciitis. 10. Squamous cell carcinoma of the skin. 11. Superficial thrombosis of the left upper extremity. PAST SURGICAL HISTORY: 1. Arm surgery x2. 2. Coronary artery bypass graft. 3. Cystoscopy. 4. Hernia repair. 5. Knee surgery. 6. Prostate surgery. 7. Tonsillectomy. 8. Cushing teeth. FAMILY HISTORY: Significant for lung disease and brain neoplasm. PATIENT'S NAME: ARKDALE [facility] AGE: 81 Y [address] ROOM: [place] [address] LOCATION: [facility] ADMIT DATE: 01/23/2017 History & Physical DISCHARGE DATE: FAMILY PHYSICIAN: ELLE BULL MD ATTENDING PHYSICIAN: Onel Rios SOCIAL HISTORY: The patient is a former tobacco user and quit smoking approximately 10 years ago. Denies any alcohol or illicit drug use. ALLERGIES: PROCAINAMIDE AND IODINE CONTRAST DYE. REVIEW OF SYSTEMS: A complete review of systems was obtained, pertinent positives and negatives as mentioned in the HPI. OBJECTIVE: VITAL SIGNS: Temperature 99, pulse 70, respirations 15, and blood pressure 175/81. GENERAL: The patient is alert and oriented, appears in no acute distress. HEENT: Head: Normocephalic, atraumatic. Eyes: Conjunctivae clear. No scleral icterus. Mouth and oropharynx: Mucosa moist and pink. No lesions or exudates. NECK: Supple. No lymphadenopathy or thyromegaly. HEART: Irregular rate with systolic murmur. LUNGS: Clear to auscultation bilaterally with decreased breath sounds throughout, but no crackles or wheezes. ABDOMEN: Bowel sounds present. Nontender. EXTREMITIES: No cyanosis or clubbing, but left upper extremity is swollen and red, and there is a dressing covering his wound on his left upper arm. VASCULAR: Pulses +2 and equal bilaterally. SKIN: Again noted wound covered in the left upper arm. NEUROLOGIC: No neurological deficits. LABORATORY DATA: White blood cell count is 5.8, hemoglobin 10.6. Creatinine of 1.9 with a blood glucose of 116. ASSESSMENT: 1. Deep vein thrombosis of left upper extremity. 2. Atrial fibrillation. 3. Chronic diastolic heart failure. 4. Diabetes mellitus type 2. 5. Chronic renal failure, stage 3. 6. Anemia of chronic disease. 7. MRSA of wound in the left lower extremity. 8. Hypertension. 9. Gastroesophageal reflux disease. 10. Coronary artery disease. PATIENT'S NAME: ABIGAIL STEEN [facility] AGE: 81 Y [address] ROOM: [address] [place] [id number] [facility] ADMIT DATE: 01/23/2017 History & Physical DISCHARGE DATE: FAMILY PHYSICIAN: ELLE BULL MD ATTENDING PHYSICIAN: Onel Rios PLAN: We will start him on a heparin drip per protocol and elevate his arm. We will have Wound Care follow up for his wound, and also start him on clindamycin, which is MRSA sensitive to and have pharmacy dose. His atrial fibrillation is rate controlled and we will monitor. We will continue on sliding scale insulin for his diabetes mellitus, and we will monitor his kidney function and his anemia. We will continue to monitor his blood pressure and his GERD and treat with home medications, and his cardiovascular disease is stable at this time. ONEL RIOS MD RLG/modl /[id number] D: [id number] T: [id number] HISTORY & PHYSICAL
--- NOTE | ~2017-01-23 | CON ---
PATIENT'S NAME: ABIGAIL STEEN [facility] AGE: 81 Y [address] ROOM: [place] [address] LOCATION: [facility] ADMIT DATE: 01/23/2017 Consultation DISCHARGE DATE: FAMILY PHYSICIAN: ELLE MAK MD ATTENDING PHYSICIAN: Kamaljit Rios DATE OF CONSULTATION: 01/25/2017 REFERRING PHYSICIAN: Kamaljit Rios MD REASON FOR CONSULT: Left upper arm wound. HISTORY OF PRESENT ILLNESS: This is an 81-year-old male patient who was admitted to [facility] with a left arm DVT. He has a significant history of recurrent squamous cell carcinoma. I last saw him in the [facility] on January 15, 2017. We have been applying a Mepilex foam dressing to the site changing 3 times a week. The patient has home health. Prior to admission, he noted increasing pain and fevers at home. He saw his primary care provider Dr. Mak. Wound cultures are positive for MRSA and ultrasound confirmed a left upper arm DVT. The patient notes he has had poor sleep and a poor appetite. His recently . The will be this Wednesday. Currently, he is complaining of 9/10 pain. He notes frustration and does not want to live with the pain. He has had a total of 4 surgeries to his left arm. He has had previous chemo and radiation. He notes he needs a heart valve replacement. He currently denies fevers. He notes no relief in left arm pain except with narcotics. 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 PAST SURGICAL HISTORY: Coronary artery bypass grafting, cardiac stents, umbilical hernia repair, bilateral inguinal hernia repair, left eye surgery, cataract surgery, prostatectomy, cystoscopy with excision of lesions, tonsillectomy, and a total of 4 surgical interventions to his left upper arm. FAMILY HISTORY: Positive for Alzheimer disease. Surprisingly, no family history of skin cancer. SOCIAL HISTORY: PATIENT'S NAME: ABIGAIL STEEN [facility] AGE: 81 Y [address] ROOM: [place] [id number] LOCATION: [facility] ADMIT DATE: 01/23/2017 Consultation DISCHARGE DATE: FAMILY PHYSICIAN: ELLE MAK MD ATTENDING PHYSICIAN: Kamaljit Rios The patient lives in an independent apartment at [place]. His significant other recently and her is this Wednesday. He is receiving home healthcare services through [facility]. He quit smoking in 1997. He reports drinking alcoholic beverage before bed. 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 ALLERGIES: PROCAINAMIDE AND IODINE CONTRAST MEDIA. CURRENT MEDICATIONS: Please refer to the medication administration record. REVIEW OF SYSTEMS: Pertinent positives are addressed in the HPI and all others are negative. PHYSICAL EXAMINATION: VITAL SIGNS: Temperature 98.5, pulse 63, respirations 23, blood pressure 123/56, and pulse ox 95% on room air. Height 5 feet 10 inches and weight 84.1 kg. GENERAL: The patient is alert and oriented x3. Appears in no acute distress. HEENT: Head: Normocephalic, atraumatic. Oral mucosa intact. Anicteric sclerae. Slightly hard of hearing. NECK: Supple. ABDOMEN: Soft. EXTREMITIES: +2 radial pulses. +2 left arm edema. Capillary refill intact. Extremities are warm to touch. SKIN: Left upper anterior arm wound measures 5.0 cm width x 1.5 cm length x 2.0 cm depth. Wound bed is mostly moist pink. Moderate amount of thick bloody exudate. Odor noted. Periwound intact, but very tender to touch. LABORATORY DATA: White blood cell count 6.7, hemoglobin 11.5, hematocrit 33.3, platelets 176. Sodium 134, potassium 4.5, chloride 100, bicarb 27, BUN 38, creatinine 1.8, glucose 178. GFR 34. Wound culture and ultrasound were done at [facility]. ASSESSMENT AND PLAN: Again, this is an 81-year-old male patient who was admitted to [facility] with a left arm deep vein thrombosis. Left upper arm wound secondary to recurrent squamous cell carcinoma. Virtually unchanged since I last saw the site. Site now is complicated by deep vein thrombosis and methicillin-resistant Staphylococcus aureus. The patient is on clindamycin. I instructed nursing to apply antimicrobial Xeroform to the PATIENT'S NAME: ABIGAIL STEEN [facility] AGE: 81 Y [address] ROOM: [id number] [place], [place] [address] [facility] ADMIT DATE: 01/23/2017 Consultation DISCHARGE DATE: FAMILY PHYSICIAN: ELLE MAK MD ATTENDING PHYSICIAN: Kamaljit Rios site with an ABD pad changing daily and p.r.n. saturation. We will most likely change back to Aquacel Ag and a foam dressing on discharge. The patient is currently on a heparin drip. We will apply Tubigrip for edema control. The patient complains of significant pain. I ordered morphine 1 mg IV push x1. He also has it p.r.n. every 2 hours. The patient noted frustration with his care. He feels no one is coordinating the plan. I did request records from Maurizio in [facility]. He would benefit from a palliative care consult. It was great to see Bill again. Thank you for this consult. CARISSA RUFF APRN FOR MD FELICIANO YOUNG/rogelio /[id number] d: 01/26/17912 t: 02/01/17 181, CONSULTATION REPORT
--- NOTE | ~2017-01-23 | CON ---
PATIENT'S NAME: GUANAKO STEEN [facility] AGE: 81 Y [address] ROOM: [address] [place] [id number] LOCATION: GPCU ADMIT DATE: 01/23/2017 Consultation DISCHARGE DATE: 01/27/2017 FAMILY PHYSICIAN: Michi Mak MD ATTENDING PHYSICIAN: Kamaljit Rios DATE OF CONSULTATION: 01/26/2017 REFERRING PHYSICIAN: Michi Mak MD LOCATION: PCU. CHIEF COMPLAINT: Palliative care referral for symptom management and goals of care discussion. HISTORY OF PRESENT ILLNESS: The patient is an 81-year-old male who presented to [facility] ER with left upper extremity pain and swelling. He had recently been seen at [facility] and had been found to have an occlusive basilic vein superficial thrombophlebitis. He also has a wound to his left upper extremity which was cultured and came back as MRSA. The patient has a history of metastatic squamous cell carcinoma. Earlier this summer, had a surgery at [facility] and has had issues with wound healing since then. Of significance, the patient's significant other of 25+ years just over a week and a half ago of lung cancer. During this hospital stay, the patient has been teary, admitting to feeling depressed, and actually tried to leave the hospital this morning. Given all this, Palliative Care has been consulted as the patient is familiar with our services from his to assist with symptom management and goals of care conversation. PAST SURGICAL HISTORY: 1. Arm surgery x2. 2. CABG. 3. Cystoscopy. 4. Hernia repair. 5. Knee surgery. 6. Prostate surgery. 7. Tonsillectomy. 8. [place] teeth extraction. PAST MEDICAL HISTORY: 1. 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 2. Atrial fibrillation. 3. Diabetes mellitus, type 2. 4. Emphysema. PATIENT'S NAME: GUANAKO STEEN [facility] AGE: 81 Y [address] ROOM: [id number] [place] [id number] LOCATION: GPCU ADMIT DATE: 01/23/2017 Consultation DISCHARGE DATE: 01/27/2017 FAMILY PHYSICIAN: Michi Mak MD ATTENDING PHYSICIAN: Kamaljit Rios 5. Congestive diastolic heart failure. 6. History of prostate cancer. 7. Hypercholesteremia. 8. History of bladder cancer. 9. Recent history of superficial thrombosis of the left upper extremity. MEDICATIONS: Please see current MAR. ALLERGIES: PROCAINAMIDE AND MYELOGRAM DYE. SOCIAL HISTORY: The patient's significant other of 25+ years recently . He recently moved into [facility]. He has a history of smoking tobacco, quit approximately 10 years ago. No current alcohol use. FAMILY HISTORY: Significant for lung disease and brain cancer. REVIEW OF SYSTEMS: GENERAL: Appetite has been fair. He does endorse some changes in his weight related to food. Denies any recent fever, chills, or night sweats. Positive for fatigue. HEENT: No change in vision or hearing. No headaches. No sinus congestion. RESPIRATORY: Denies shortness of breath or cough. CARDIOVASCULAR: No chest pain, pressure, or palpitations. He has had increasing lower extremity edema. GASTROINTESTINAL: No nausea, vomiting, diarrhea, constipation, or difficulty chewing or swallowing. GENITOURINARY: Does have some urinary incontinence at times. No dysuria. MUSCULOSKELETAL: Does complain a grabbing, constant pain in his left upper extremity. He reports that Percocet is fairly helpful for this. Denies any recent falls. Ambulates without a walker or cane. NEUROLOGICAL: No numbness or tingling. No dizziness, syncope, or seizures. INTEGUMENTARY: Does have a dressing and has been seeing the wound care nurses for his left upper extremity wound. PSYCHIATRIC: Does report that he has been feeling depressed, especially recently after the loss of his significant other, and has not been sleeping very well both here at the hospital as well as at home. Denies any hallucinations. PHYSICAL EXAMINATION: VITAL SIGNS: Blood pressure 155/70, heart rate 56, temperature 98.0, respirations 13, and O2 saturation is 92% on 2 L. PATIENT'S NAME: GUANAKO STEEN [facility] AGE: 81 Y [address] ROOM: [id number] [place] [id number] LOCATION: GPCU ADMIT DATE: 01/23/2017 Consultation DISCHARGE DATE: 01/27/2017 FAMILY PHYSICIAN: Michi Mak MD ATTENDING PHYSICIAN: Kamaljit Rios GENERAL: An alert, oriented, elderly, white male who is sitting up in the recliner. Does not appear to be in any acute distress. Does become tearful during the conversation. HEENT: Normocephalic and atraumatic. Pupils are equal and reactive to light. Sclerae are nonicteric. Conjunctivae pink. Tongue and mucous membranes are moist and pink. Dentition is adequate. CARDIOVASCULAR: Heart tones regular in rate and rhythm. He is bradycardic at times. RESPIRATORY: Respirations are regular and nonlabored. Lung sounds are clear and diminished throughout. I am not able to hear any rales, rhonchi, or wheezes. GASTROINTESTINAL: Abdomen is soft and nontender. Bowel sounds are present. MUSCULOSKELETAL: No significant joint deformities. Peripheral pulses are 1+ bilaterally. Does have 2 to 3+ bilateral lower extremity edema. SKIN: Warm and dry. Does have a dressing to the inner part of his left upper arm which is clean, dry, and intact. NEUROLOGICAL: Grossly intact. MENTAL STATUS: Unremarkable. PSYCHIATRIC: The patient does become tearful at times and is perhaps also slightly confused or forgetful more so than his usual baseline. IMPRESSION AND PLAN: 1. Left upper extremity pain. The patient reports that this does become out of control at times, but Percocet is helpful. May consider scheduling Percocet and encourage nursing staff to give 1 mg of IV morphine prior to dressing changes while here at the hospital. 2. Depression. Provided emotional support and active listening. We will also ask the hospice bereavement staff to come visit with the patient as well as his 's is this coming Wednesday. 3. Code status. The patient is a do not resuscitate/do not intubate. I spent a significant amount of time visiting with the patient and his daughter Agustina in regard to hospice versus home health and goals of care. [place] has been telling me for some time that he does not think that he will pursue any further aggressive treatment for his arm. He has seen Radiation Oncology recently and had been set up for a number of weeks of radiation, but he tells me at this point he does not think that he will go through with it as he just does not see the point in prolonging this. He does become quite emotional and tearful at times and states multiple times that he hopes this does not go on for long. Provided emotional support and active listening. Explained to him that at this point there is nothing that is going to take him. I encouraged him to talk about his feelings and also told him that I would have someone stop by for bereavement support. Discussed at length with the patient and his daughter Agustina griffin at [facility], especially given the fact the patient is on the independent side, and he seems to be getting weaker and more forgetful. At this point, we are working on trying to get the PATIENT'S NAME: GUANAKO STEEN [facility] AGE: 81 Y [address] ROOM: [place] [address] LOCATION: GPCU ADMIT DATE: 01/23/2017 Consultation DISCHARGE DATE: 01/27/2017 FAMILY PHYSICIAN: Michi Mak MD ATTENDING PHYSICIAN: Kamaljit Rios patient moved over to the assisted living side, but this may not happen for a few days or weeks. Discussed the role that hospice could play in helping with this and providing additional support, probably more so than home health at this point. We will leave the family to discuss this further and follow up in the next day or so. We will continue to monitor the patient's pain and adjust pain medication doses as needed. The patient and family denied any other fears or concerns. No spiritual needs. Answered their questions to the best of my ability. They are very thankful for the visit. Total visit was 75 minutes, greater than 50% of this time was spent providing education and counseling. Thank you for allowing me to assist this patient and family. BRANDY FIGUEROA NP FOR JOSH DENNY MD DLS/modl /[id number] CC: Michi Mak MD d: 01/29/17 1126 t: 01/29/17 1730, CONSULTATION REPORT
--- NOTE | ~2017-01-23 | ER ---
PATIENT'S NAME: ABIGAIL STEEN [facility] AGE: 81 Y [address] ROOM: [place] [address] LOCATION: GPCU ADMIT DATE: 01/23/2017 ER/Outpatient Report DISCHARGE DATE: FAMILY PHYSICIAN: ELLE MAK MD ATTENDING PHYSICIAN: Kmaaljit Rios Time of Evaluation: 1750 hours. HISTORY OF PRESENT ILLNESS: The patient is an 81-year-old male, who was brought in by EMS with complaint of left arm pain, which has become progressively worse today. The patient does have a history of squamous cell carcinoma involving the left arm. The patient has had previous surgery, and is currently seeing the Wound Care team for the open wound on the inner aspect of his left elbow. Daughter reports that he was seen by Dr. Mak at [facility] earlier in the week, had cultures taken from the wound and supposedly a Doppler study to rule out any possible blood clot. ALLERGIES: HIS MEDICAL HISTORY GIVES NO MEDICINAL ALLERGIES. CURRENT MEDICATIONS: See copied list. MEDICAL HISTORY: Includes squamous cell carcinoma of the left arm, dvk-gpjbrfy-ruzcqfxax diabetes, coronary artery disease, history of atrial fibrillation, aortic stenosis with congestive heart failure, COPD, sleep apnea, prostate cancer, bladder cancer, cholelithiasis, colonic polyps, and history of histoplasmosis. SURGERIES: Include coronary artery bypass graft surgeries, stent placement, hernia repair, and prostatectomy. SOCIAL HISTORY: Currently living at [place]. Has alcohol on occasion. Nonsmoker. REVIEW OF SYSTEMS: GENERAL: Denies fever or chills today. HEAD AND EENT: No complaints of any headache or neck pain. RESPIRATORY: Denies any productive cough or shortness of breath. CARDIOVASCULAR: Some history of some intermittent chest pain, but most of his complaint is his left arm pain. GASTROINTESTINAL: No nausea or vomiting. GENITOURINARY: No incontinence. PATIENT'S NAME: ABIGAIL STEEN [facility] AGE: 81 Y [address] ROOM: [place] [address] LOCATION: GPCU ADMIT DATE: 01/23/2017 ER/Outpatient Report DISCHARGE DATE: FAMILY PHYSICIAN: ELLE MAK MD ATTENDING PHYSICIAN: Kamaljit Rios SKIN: Includes an open wound on the inner aspect of his left elbow as a result of his cancer surgery. PHYSICAL EXAMINATION: VITAL SIGNS: His blood pressure was 116/62, his temperature was 98.7, his respiratory rate was 16, his pulse was 69, and his O2 saturations were 95%. GENERAL APPEARANCE: He is a pleasant 81-year-old. HEAD: Normocephalic. EYES: PERRLA. NOSE: Septum midline. MOUTH: Oral membranes were moist. LUNGS: Breath sounds were diminished but present. HEART: Tones distant. No significant murmur noted. ABDOMEN: Soft, nontender. EXTREMITIES: Both ankles were swollen, nonpitting. Left arm also appeared swollen, there was some erythema present, and the patient had a dressing in place on the inner aspect of his left elbow. Had good radial pulse. DIAGNOSTIC DATA: EKG showed some moderate ST depression and an old inferior infarct. D-dimer was positive at 0.65. CBC: White count 5.8, hemoglobin 10.6, ANC was 3.6. His PTT was 30, protime 10.7, INR 1.2. CMS: Sodium low at 134, glucose was high at 116, calcium low at 8.4. He had an elevated BUN at 44, creatinine 1.9. Magnesium 2.1. CPK 240, CK-MB 2.6, troponin was less than 0.040. ProBNP was elevated at 2685. His repeat cardiac enzymes showed no significant changes. Venous Doppler of his left arm showed the presence of a clot in his upper arm. ASSESSMENT: 1. Left arm pain with a left deep vein thrombosis. 2. Squamous cell carcinoma, left arm. 3. Pxc-ydriyqb-ihfkocpwa diabetes. 4. History of atrial fibrillation. 5. History of coronary artery disease with previous bypass graft surgery. 6. He has a history of aortic stenosis and congestive heart failure. 7. History of sleep apnea. 8. History of prostate cancer and bladder cancer. 9. History of cholelithiasis. PLAN: The patient will be admitted for inpatient, Dr. Rios to admit. PATIENT'S NAME: ABIGAIL STEEN [facility] AGE: 81 Y [address] ROOM: [place] [address] LOCATION: GPCU ADMIT DATE: 01/23/2017 ER/Outpatient Report DISCHARGE DATE: FAMILY PHYSICIAN: ELLE MAK MD ATTENDING PHYSICIAN: Kamaljit Rios PA FOR MD MUNIR MORAN/modl /[id number] d: 01/24/17 0240 t: 02/02/1711, OUTPATIENT REPORT
--- NOTE | ~2017-01-23 | ENPV ---
Vascular Lower Extremities DVT Study Procedure Demographics Patient Name ABIGAIL STEEN Date of Study 01/25/2017 Patient Number [id number] Gender Male Date of 1935 Age 81 Visit Number [id number] Height Accession Number [id number] Weight Room Number G6338 BSA BMI Referring Gabriel Mari Marissa Interpreting David Bhatti MD Physician MD Physician Physician Ordering Gabriel Ann Salesperson [employer] Physician Group Fitness Instructor Salomón Ann BS, RT Conclusions Summary No evidence of deep vein thrombosis or superficial thrombophlebitis in the lower extremities bilaterally . Procedure Type of Study: Veins:Lower Extremities DVT Study, Venous Duplex Lower Extremity Bilateral. Indications for Study:Pain, edema, discoloration and Bilateral lower extremity edema. Allergies - Other:(procanamide. myelogram dye.). Patient Status:Routine. Study Location:Inpatient Portable. Technical Quality:Adequate visualization. Velocities are measured in cm/s ; Diameters are measured in cm Right Lower Extremities DVT Study Measurements Right 2D and Doppler Measurements + + + + +------+------+ + !Location !Visualized!Compressibility!Thrombosis!Signal!Reflux!Reflux ! ! ! ! ! ! ! !(sec) ! + + + + +------+------+ + !GSV Thigh !Yes !Yes !None !Phasic!No ! ! + + + + +------+------+ + !Common !Yes !Yes !None !Phasic!No ! ! !Femoral ! ! ! ! ! ! ! + + + + +------+------+ + !Prox !Yes !Yes !None !Phasic!No ! ! !Femoral ! ! ! ! ! ! ! + + + + +------+------+ + !Mid Femoral!Yes !Yes !None !Phasic!No ! ! + + + + +------+------+ + !Dist !Yes !Yes !None !Phasic!No ! ! !Femoral ! ! ! ! ! ! ! + + + + +------+------+ + !Popliteal !Yes !Yes !None !Phasic!No ! ! + + + + +------+------+ + !Gastroc !Yes !Yes !None !Phasic!No ! ! + + + + +------+------+ + !PTV !Yes !Yes !None !Phasic!No ! ! + + + + +------+------+ + !Peroneal !Yes !Yes !None !Phasic!No ! ! + + + + +------+------+ + Left Lower Extremities DVT Study Measurements Left 2D and Doppler Measurements + + + + +------+------+ + !Location !Visualized!Compressibility!Thrombosis!Signal!Reflux!Reflux ! ! ! ! ! ! ! !(sec) ! + + + + +------+------+ + !GSV Thigh !Yes !Yes !None !Phasic!No ! ! + + + + +------+------+ + !Common !Yes !Yes !None !Phasic!No ! ! !Femoral ! ! ! ! ! ! ! + + + + +------+------+ + !Prox !Yes !Yes !None !Phasic!No ! ! !Femoral ! ! ! ! ! ! ! + + + + +------+------+ + !Mid Femoral!Yes !Yes !None !Phasic!No ! ! + + + + +------+------+ + !Dist !Yes !Yes !None !Phasic!No ! ! !Femoral ! ! ! ! ! ! ! + + + + +------+------+ + !Popliteal !Yes !Yes !None !Phasic!No ! ! + + + + +------+------+ + !Gastroc !Yes !Yes !None !Phasic!No ! ! + + + + +------+------+ + !PTV !Yes !Yes !None !Phasic!No ! ! + + + + +------+------+ + !Peroneal !Yes !Yes !None !Phasic!No ! ! + + + + +------+------+ + Signature dtt: ALLEGRA GARZA dtd: 01/25/17 1439 Physician Self Steffany
--- NOTE | ~2017-01-23 | DS ---
PATIENT'S NAME: ABIGAIL STEEN [facility] AGE: 81 Y [address] ROOM: [place] [address] LOCATION: GPCU ADMIT DATE: 01/23/2017 Discharge Summary DISCHARGE DATE: 01/27/2017 FAMILY PHYSICIAN: Michi Mak MD ATTENDING PHYSICIAN: Kamaljit Rios FINAL PRIMARY DISCHARGE DIAGNOSIS: Cellulitis of the left upper extremity, MRSA. ADDITIONAL DIAGNOSES: 1. Superficial thrombophlebitis of the left basilic vein, that is completely occluded, but is subacute. 2. Diabetes mellitus type 2. 3. Pyhua-us-wfooyhs diastolic congestive heart failure. 4. Arm pain, secondary to wound and cellulitis of the left upper extremity. 5. Squamous cell carcinoma with metastasis. 6. Paroxysmal atrial fibrillation. 7. Coronary artery disease. 8. Hypertension. 9. Hyperlipidemia. 10. Obesity. CONSULTATIONS: Wound Care on 01/23/2017 recommended dressing changes as well as clindamycin. PROCEDURES/IMAGING: Chest x-ray from 01/23/2017 showed emphysematous changes in the lungs with scarring of the lung parenchyma prominently at the lung bases, but no acute findings otherwise. Left upper extremity ultrasound from 01/23/2017 showed that there was no evidence of deep vein thrombosis of the left upper extremity, but there is a subacute occlusive superficial thrombophlebitis of the basilic vein of the upper arm. PERTINENT LABS: Hemoglobin A1c from 01/23/2017, 7.8%. Discharge GFR was 34, creatinine 1.8. CBC showed a platelet of 174, which was a delta, but otherwise was normal. DISCHARGE PHYSICAL EXAMINATION: GENERAL: A pleasant, elderly adult male in no acute distress. HEENT: Head is normocephalic and atraumatic. Eyes: Conjunctivae clear. Sclerae white. ENT: Mucous membranes moist. NECK: Supple. Trachea is midline. HEART: Irregularly irregular with a grade 3/6 to 4/6 systolic ejection murmur best heard at the right upper sternal border. LUNGS: Distant breath sounds, but clear to auscultation bilaterally. ABDOMEN: Soft, nontender, nondistended. PATIENT'S NAME: ABIGAIL STEEN [facility] AGE: 81 Y [address] ROOM: [place] [address] LOCATION: GPCU ADMIT DATE: 01/23/2017 Discharge Summary DISCHARGE DATE: 01/27/2017 FAMILY PHYSICIAN: Michi Mak MD ATTENDING PHYSICIAN: Kamaljti Rios EXTREMITIES: Warm, well-perfused, 1+ pitting edema bilateral lower extremities, which has been stable. SKIN: No new findings. There is a wound that is wrapped present on the left biceps area in the axilla. BRIEF HOSPITAL COURSE: Mr. Steen is an 81-year-old gentleman with a past medical history as noted above who was admitted to the [facility] PCU from the [facility] Emergency Department for left upper extremity pain and swelling as well as infection. He was started on clindamycin for MRSA infection that was reported late to the [facility]. We do know that it was sensitive to clindamycin and that is why the patient was started on it. He did have an ultrasound of the left upper extremity that initially per the emergency department reports as well as hand off from the admitting physician showed a deep venous thrombosis of the left upper arm. However, final report showed that he had occlusive basilic vein superficial thrombophlebitis. He was started on heparin drip. Eventually, he was converted back to his home Eliquis. The patient did have significant difficulty with arm pain during the hospitalization. He was seen by Palliative Care who recommended scheduled oxycodone. The patient did much better with this once he was able to get ahead of his pain. A thorough discussion with the patient in regards to his options was had with the patient during this hospitalization. The patient's back story is that he initially over a year ago had a biopsy and subsequent removal of a squamous cell carcinoma that had popped up on the dorsal finger of his left hand. The patient later showed back up with pain, warmth, and redness at the left medial upper extremity more proximally, which was initially thought to be infection. Later, there was some concern for deep venous thrombosis. Ultimately, though the area had a MRI and seemed to be suspicious for malignancy and so the patient had surgery for biopsy and possible removal, which showed it was a metastatic squamous cell carcinoma. The patient had been treated with chemotherapy as well as radiation and was recommended by the hand surgeon that he may need amputation of the arm to prevent worsening of the cancer, which had recurred after the tumor debridement. He was set to have a significant surgery at the [facility] when he began having extreme blood pressure 210 or greater. This was in summer 2016. The patient then was taken to Cardiology floor and further evaluated and found to be quite hypertensive as well as in a bit of a diastolic congestive heart failure exacerbation. He was diuresed and his blood pressure is controlled and he was discharge to home. The patient has been struggling with a wound in this area that Wound Care and has been seeing. Ultimately, on this ocvnd-yn-bwfsw discussion with the patient, he would like to pursue hospice or least Palliative Care as he would PATIENT'S NAME: ABIGAIL STEEN [facility] AGE: 81 Y [address] ROOM: [address] [place] [id number] LOCATION: GPCU ADMIT DATE: 01/23/2017 Discharge Summary DISCHARGE DATE: 01/27/2017 FAMILY PHYSICIAN: Michi Mak MD ATTENDING PHYSICIAN: Kamaljit Rios like to have no further significant interventions done. I agree with this approach. We will go ahead and treat his infection as well as sent him home with some Percocet and be sure that he is fully evaluated by hospice and any further recommendations that they have I would agree with. DISCHARGE PROGNOSIS: Overall, iudf-ru-sqbu. DISCHARGE CONDITION: Stable. FOLLOW UP: Follow up with Dr. Mak in 2 days at the [facility] for the titration of medications. Please call the [facility] or 1st call hospice if there are any acute issues. MD ARLENE GOODEN/modl /[id number] d: 01/28/17 0534 t: 02/01/17 0851, DISCHARGE SUMMARY
--- NOTE | ~2017-01-23 | ENPV ---
Vascular Upper Extremities Veins Procedure Demographics Patient Name ABIGAIL STEEN Date of Study 01/23/2017 Patient Number [id number] Gender Male Date of 1935 Age 81 Visit Number [id number] Height Accession Number [id number] Weight Room Number G6338 BSA BMI Referring Interpreting David Bhatti MD Physician Physician Physician Colleen Barbosa Hydrochloric Area Supervisor Physician KIRK Integrity Engineer Lynn Long T, [facility] Conclusions Summary No evidence of deep vein thrombosis in the left upper extremity , but there is subacute occlusive superficial thrombophlebitis in the basilic vein in the upper arm. Procedure Type of Study: Veins:Upper Extremities Veins, Upper Extremity Left. Indications for Study:Pain and Swelling. Appropriate Use Criteria:6 Allergies - Other:(procanamide. myelogram dye.). Patient Status:STAT. Study Location:ER. Technical Quality:Adequate visualization. - Preliminary reported to:Dr. Bocanegra. Velocities are measured in cm/s ; Diameters are measured in cm Right UE Vein Measurements 2D and Doppler Measurements + + + + +--------+ + !Location !Visualized !Compressibility !Thrombosis !Signal !Reflux ! + + + + +--------+ + !IJV !Yes !Yes !None !Phasic ! ! + + + + +--------+ + Left UE Vein Measurements 2D and Doppler Measurements + + + + +--------+--------+ !Location !Visualized !Compressibility !Thrombosis !Signal !Reflux ! + + + + +--------+--------+ !IJV !Yes !Yes !None !Phasic ! ! + + + + +--------+--------+ !SCV !Yes !Yes !None !Phasic ! ! + + + + +--------+--------+ !Innominate !Yes !Yes !None !Phasic ! ! + + + + +--------+--------+ !Axillary !Yes !Yes !None !Phasic ! ! + + + + +--------+--------+ !Brachial !Yes !Yes !None !Phasic ! ! + + + + +--------+--------+ !Radial !Yes !Yes !None !Phasic ! ! + + + + +--------+--------+ !Ulnar !Yes !Yes !None !Phasic ! ! + + + + +--------+--------+ !Basilic !Yes !No !Sub-acute !Absent ! ! + + + + +--------+--------+ !Cephalic !Yes !Yes !None !Phasic ! ! + + + + +--------+--------+ Signature dtt: ALLEGRA GARZA dtd: 01/23/17 1929 Physician Self Edit
[~2017-01-23 17:41] MED LIST changes: -AUGMENTIN250 MG PO; -CLINDAMYCIN HC300 MG PO; -PROTONIX40 M1 PO
[2017-01-23 18:19] LABS: BASOPHIL % 0.5 %; EOSINOPHIL # 0.2 K/uL (0.0-0.5); EOSINOPHIL % 3.5 %; HEMATOCRIT 30.3 % (33.0-50.0); HEMOGLOBIN 10.6 g/dL (11.0-16.0); IMMATURE GRANULOCYTE % 0.2 %; LYMPHOCYTE # 1.2 K/uL (0.8-4.0); LYMPHOCYTE % 21.2 %; MCH 31.6 pg (27.0-34.0); MCV 90.4 fl (83.0-98.0); MONOCYTE # 0.7 K/uL (0.0-1.0); MONOCYTE % 11.9 %; NEUTROPHIL # (ANC) 3.6 K/uL (1.4-9.0); NEUTROPHIL % 62.7 %; NRBC % 0 /100WBC (0-0.00); PLATELET COUNT 151 K/uL (150-450); RBC 3.35 M/uL (3.50-5.50); RDW-CV 12.5 % (11.9-14.6); WBC 5.8 K/uL (4.0-11.0)
[2017-01-23 18:26] LABS: INR - (THERAPEUTIC) 1.02 (0.92-1.07); PROTIME 10.7 SECONDS (9.8-11.4); PTT 30 SECONDS (25-32)
[2017-01-23 18:37] LABS: ALBUMIN 3.1 gm/dL (3.5-5.0); ALK PHOS 145 IU/L (33-138); ALT 15 IU/L (12-78); ANION GAP 11.8 (10.0-19.0); AST 10 IU/L (10-40); BLOOD UREA NITROGEN 44 mg/dL (6-24); CALCIUM 8.4 mg/dL (8.5-10.5); CHLORIDE 99 mMol/L (96-110); CO2 28 mMol/L (22-32); CPK 240 IU/L (35-332); CREATININE 1.9 mg/dL (0.6-1.3); MAGNESIUM 2.1 mg/dL (1.8-2.6); POTASSIUM 4.8 mMol/L (3.7-5.1); SODIUM 134 mMol/L (135-145); TOTAL PROTEIN 6.8 g/dL (6.0-8.4)
[2017-01-23 18:38] LABS: TOTAL BILIRUBIN 0.6 mg/dL (0.0-1.5)
[2017-01-23 20:34] LABS: CPK 243 IU/L (35-332)
[2017-01-23] MEDS ORDERED: PROTONIX40 M1 PO (22:36)
[2017-01-23] MEDS ORDERED: ELIQUIS5 MG PO (22:43)
[2017-01-23] MEDS ORDERED: ZESTRIL2.5 MG PO (22:44)
[2017-01-23] MEDS ORDERED: AUGMENTIN250 MG PO (22:46)
[2017-01-23] MEDS ORDERED: TYLENOL EXTRA500 MG PO (22:47)
--- NOTE | 2017-01-24 05:58 | NUR ---
Pt from [facility] facility. a/o. vss on RA/2L for sleep (wears cpap but did not want to wear it tonight). IV to [facility] with heparin. started on iv abx for MRSA in DI tricep wound. woc ordered.
[2017-01-24 07:38] LABS: BASOPHIL % 0.6 %; EOSINOPHIL # 0.2 K/uL (0.0-0.5); EOSINOPHIL % 3.2 %; HEMATOCRIT 30.5 % (33.0-50.0); HEMOGLOBIN 10.7 g/dL (11.0-16.0); IMMATURE GRANULOCYTE % 0.2 %; LYMPHOCYTE # 1.2 K/uL (0.8-4.0); LYMPHOCYTE % 21.8 %; MCHC 35.1 gm/dL (32.0-36.5); MCV 91.3 fl (83.0-98.0); MONOCYTE # 0.6 K/uL (0.0-1.0); MONOCYTE % 11.7 %; MPV 10.2 fl (9.4-12.4); NEUTROPHIL # (ANC) 3.3 K/uL (1.4-9.0); NEUTROPHIL % 62.5 %; NRBC % 0 /100WBC (0-0.00); PLATELET COUNT 132 K/uL (150-450); RBC 3.34 M/uL (3.50-5.50); RDW-CV 12.5 % (11.9-14.6); WBC 5.3 K/uL (4.0-11.0)
[2017-01-24 07:52] LABS: ANION GAP 9.8 (10.0-19.0); CALCIUM 8.6 mg/dL (8.5-10.5); CREATININE 1.8 mg/dL (0.6-1.3); POTASSIUM 4.8 mMol/L (3.7-5.1)
--- NOTE | 2017-01-24 17:27 | NUR ---
Significant Event: VERY SLEEPY THIS SHIFT, DAUGHTER SAYS HE HASN'T SLEPT GOOD FOR DAYS. WAKES UP EASILY AND IS APPROPRIATE WHEN HE'S AWAKE, JUST VERY SLEEPY IN BETWEEN. NO CHANGES INI ASSESSMENTS THIS SHIFT. ARM REMAINS EDEMATOUS, RED AND WARM TO TOUCH. FOUL ODOR FROM WOUND/DRESSING TO WOUND. HEPARIN ADJUSTMENTS MADE PER PROTOCOL. Follow up: MONITOR
--- NOTE | 2017-01-25 05:27 | NUR ---
Pt a/o. very restless tonight. given ivp ativan, morphine, and prn percocet. still con't to complain of pain/ unable to sleep. finally put pt in his chair and he seemed to get a little sleep. vss on ra, afebrile. becomes aggitated with help when the bed alarm goes off. goodwin in place. heparin at 1100 units/hr. ptthp at 0645. Plan: needs woc conuslt for arm
[2017-01-25 07:18] LABS: BASOPHIL % 0.4 %; EOSINOPHIL # 0.2 K/uL (0.0-0.5); HEMATOCRIT 33.3 % (33.0-50.0); HEMOGLOBIN 11.5 g/dL (11.0-16.0); IMMATURE GRANULOCYTE % 0.3 %; LYMPHOCYTE # 1.2 K/uL (0.8-4.0); LYMPHOCYTE % 17.4 %; MCH 31.4 pg (27.0-34.0); MCHC 34.5 gm/dL (32.0-36.5); MONOCYTE # 0.7 K/uL (0.0-1.0); MONOCYTE % 10.6 %; MPV 10.9 fl (9.4-12.4); NEUTROPHIL # (ANC) 4.6 K/uL (1.4-9.0); NEUTROPHIL % 68.3 %; NRBC % 0 /100WBC (0-0.00); RBC 3.66 M/uL (3.50-5.50); RDW-CV 12.5 % (11.9-14.6); WBC 6.7 K/uL (4.0-11.0)
[2017-01-25 07:19] LABS: PLATELET COUNT 176 K/uL (150-450)
[2017-01-25 07:30] LABS: ANION GAP 11.5 (10.0-19.0); CALCIUM 8.6 mg/dL (8.5-10.5); CREATININE 1.8 mg/dL (0.6-1.3); POTASSIUM 4.5 mMol/L (3.7-5.1)
--- NOTE | 2017-01-25 14:45 | NUR ---
Introduced self and role of care management to patient and a daughter. Patient lives at [place] in an independent apartment. His S.O. recently and her is Wednesday. He has been receiving HHC services through [facility]. He says therapy had stopped coming but a nurse was still coming twice a week. They want [facility] services to continue for the dressing changes to his arm. Daughter says they plan was for him to move next week to [facility] at [place]. She says she has left a message for [facility] to see if he would be able to move to [facility]NA when he is discharged from the hospital this week. She says she also has a call into [facility] "[facility]HC" services to see if they would be able to help him more if he can't move into the [facility] this week. She says their goal is for his pain to be controlled and him to be able to go to [facility] on Wednesday. Received call from Juany with [facility] and they do have him on services and plan to resume services when he is discharged. Will follow.
--- NOTE | 2017-01-25 18:16 | NUR ---
PT AOX3. VSS ON RA. DID HAVE AN EPISODE THIS AM, WAS VERY ANXIOUS AND TRYING TO LEAVE THE HOSPITAL. IV TO R)HAND, RUNNING HEPARIN GTT AT [address], PT WAS C/O NEED TO VOID. CHECKED LINE, NO EVIDENCE OF COMPLICATIONS WITH THE LINE, BUT PT DID HAVE SOME SCANT PENILE DRAINAGE. WOUND TO L) UA. WOC WAS HERE THIS AM AND CHANGED DRESSING. SEE CHART FOR DRESSING ORDERS. C/O PAIN, PRN MORPHINE AND PERCOCET HAS BEEN HELPING. RESIDENT NOW CALM AND COOPERATIVE AND RESTING IN BED.
--- NOTE | 2017-01-26 04:48 | NUR ---
Pt a/o. wakes up confused occasionally. vss on ra/2L cpap at hs. 1 low grade temp at the start of shift but gone on 3rd assessment. tubigrip taken off rupert per orders. dressing remains dry and intact. heparin cont at 900 units per hour. therapeutic x1 for me. Plan: con't current plan of care
[2017-01-26 06:47] LABS: BASOPHIL % 0.6 %; EOSINOPHIL # 0.2 K/uL (0.0-0.5); EOSINOPHIL % 3.1 %; HEMATOCRIT 29.8 % (33.0-50.0); HEMOGLOBIN 10.2 g/dL (11.0-16.0); IMMATURE GRANULOCYTE % 0.4 %; LYMPHOCYTE # 1.2 K/uL (0.8-4.0); LYMPHOCYTE % 24.5 %; MCHC 34.2 gm/dL (32.0-36.5); MCV 90.6 fl (83.0-98.0); MONOCYTE # 0.7 K/uL (0.0-1.0); MONOCYTE % 13.4 %; MPV 10.1 fl (9.4-12.4); NEUTROPHIL # (ANC) 2.8 K/uL (1.4-9.0); NRBC % 0 /100WBC (0-0.00); PLATELET COUNT 136 K/uL (150-450); RBC 3.29 M/uL (3.50-5.50); RDW-CV 12.4 % (11.9-14.6); WBC 4.9 K/uL (4.0-11.0)
[2017-01-26 07:00] LABS: ANION GAP 10.3 (10.0-19.0); CALCIUM 8.4 mg/dL (8.5-10.5); CREATININE 1.7 mg/dL (0.6-1.3); POTASSIUM 4.3 mMol/L (3.7-5.1)
--- NOTE | 2017-01-26 12:45 | NUR ---
Talked to patient's daughter Agustina. She says she talked to Ynes at [facility] and for several reasons, it doesn't look like they will have an ANA room for several weeks. She is waiting on Radha with [facility] to call her back. She says they have talked and her dad, just wants to be comfortable and have his pain controlled. They are planning on him returning to his independent apartment at [place] with Hospice. Explained to her if he goes on Hospice then [facility] will no longer be covered or coming in. She says if [facility] will help him and with Nivia Romero (private caregiver) helping him some and with Hospice they think it will work. She says they will probably move him to [facility] when they have an opening or look at more caregivers coming to his apartment. She and her siblings will be here until early next week due to [facility] . She says he has terminal worker care insurance that should help pay for caregivers and they are working with his property loss insurance claim adjuster to see if he qualifies. They hope to go home tomorrow. [facility] has been in contact with [facility]. Talked to Juany with [facility] and updated her. Will follow.
--- NOTE | 2017-01-26 15:51 | NUR ---
Attempted to evaluated pt this PM. Pt is present with his maintenance dispatcher and would like me to return in the morning. Dionne Garcia OTR/L
--- NOTE | 2017-01-26 18:27 | NUR ---
Significant Event: AOX3. VSS ON RA. IV TO R)HAND WAS RUNNING HEPARIN GTT. DC'd HEPARIN, ORAL ELIQUIS STARTED. BRODY DC'D. NOW VOIDS PER BATHROOM. 1 ASSIST. WOUND TO L)UA, POSITVE FOR MRSA. DRSG CHANGED TODAY. CALM AND COOPERATIVE WITH CARES. MORPHINE X1 GIVEN FOR PAIN AT 1250. PERCOCET X1 GIVEN AT 1335. PERCOCET IS NOW SCHEDULED, BEGINNING AT 2300. Follow up: HOME TOMORROW?
[2017-01-27 05:08] LABS: BASOPHIL % 0.6 %; EOSINOPHIL # 0.2 K/uL (0.0-0.5); EOSINOPHIL % 3.5 %; HEMOGLOBIN 11.5 g/dL (11.0-16.0); IMMATURE GRANULOCYTE % 0.2 %; LYMPHOCYTE # 1.2 K/uL (0.8-4.0); LYMPHOCYTE % 22.3 %; MCH 31.8 pg (27.0-34.0); MCHC 34.8 gm/dL (32.0-36.5); MCV 91.2 fl (83.0-98.0); MONOCYTE # 0.7 K/uL (0.0-1.0); MONOCYTE % 12.5 %; MPV 10.6 fl (9.4-12.4); NEUTROPHIL # (ANC) 3.3 K/uL (1.4-9.0); NEUTROPHIL % 60.9 %; NRBC % 0 /100WBC (0-0.00); RBC 3.62 M/uL (3.50-5.50); RDW-CV 12.5 % (11.9-14.6); WBC 5.4 K/uL (4.0-11.0)
[2017-01-27 05:09] LABS: PLATELET COUNT 174 K/uL (150-450)
[2017-01-27 05:24] LABS: ANION GAP 11.6 (10.0-19.0); CREATININE 1.8 mg/dL (0.6-1.3); POTASSIUM 4.6 mMol/L (3.7-5.1)
--- NOTE | 2017-01-27 05:34 | NUR ---
Significant Event: Patient alert and oriented. Percocet given x1 in addition to schedulded percocet. Patient to discharge on hospice today 01/27/17. Vitals and assesment only once per shift to help ease anxiety and encourage rest. Rested well throughout shift. Follow up: continue to monitor. possible dischrge today.
--- NOTE | 2017-01-27 11:00 | NUR ---
I spoke with Colleen with pallative care and she states all is taken care of just waiting on orders and plan back to [facility] with hospice today and care givers. I did update Yonas ERICKSON.
--- NOTE | 2017-01-27 14:59 | NUR ---
I did call [facility] and spoke with the home health care team and she stated Radha is with a resident but did know about him returning back and I also told them hospice as well. WIll assist as needed.
[2017-01-27] MEDS ORDERED: PERCOCET 5-3251 EACH PO (15:34)
[2017-01-27] MEDS ORDERED: CLINDAMYCIN HC300 MG PO (15:40)
--- NOTE | 2017-01-27 18:42 | NUR ---
steve-dr saldana dc i-nurse did teaching on meds with 2 new ones and info given, rx given, appts set up, hospice to follow, iv dcd intact, chf calendar given, pt dressings taken as were in room already, woc will do dressing changes but family will do fri as pt has , r-pt and daughter understand all teaching p-ta took pt out to car by wc, pt pleasant and thankful
== END 2017-01-27 16:30 | disposition hospice, home (50) | DRG 299 ==
LOC: GMED 17:41 → GPCU 20:52
PROVIDERS: Family Medicine; ADMIT Family Medicine
DX: I82.622 Acute embolism and thrombosis of deep veins of left upper extremity (principal); I50.33 Acute on chronic diastolic (congestive) heart failure; N17.9 Acute kidney failure, unspecified; A49.02 Methicillin resistant Staphylococcus aureus infection, unspecified site; L03.114 Cellulitis of left upper limb; E11.22 Type 2 diabetes mellitus with diabetic chronic kidney disease; I48.91 Unspecified atrial fibrillation; C44.92 Squamous cell carcinoma of skin, unspecified; I13.0 Hypertensive heart and chronic kidney disease with heart failure and stage 1 through stage 4 chronic kidney disease, or unspecified chronic kidney disease; N18.3 Chronic kidney disease, stage 3 (moderate); Z79.01 Long term (current) use of anticoagulants; Z51.5 Encounter for palliative care; D63.1 Anemia in chronic kidney disease; I25.10 Atherosclerotic heart disease of native coronary artery without angina pectoris; K21.9 Gastro-esophageal reflux disease without esophagitis; Z85.51 Personal history of malignant neoplasm of bladder; Z95.5 Presence of coronary angioplasty implant and graft; Z66 Do not resuscitate
CPT/HCPCS: G0424; J1644; J1940; J2060; J2270; J3010; J7050

== ENCOUNTER → 2017-01-23 | Outpatient (CLI) | payer MEDICARE, BC ==
[~2017-01-23] MED LIST changes: +AUGMENTIN250 MG PO; +CLINDAMYCIN HC300 MG PO; +MELATONIN3 MG PO; +PROTONIX40 M1 PO
== END | disposition disaster alternative care site (69) ==
LOC: GAMB 17:16
DX: R07.89 Other chest pain (principal); Z85.89 Personal history of malignant neoplasm of other organs and systems; Z86.79 Personal history of other diseases of the circulatory system
CPT/HCPCS: A0425; A0427